=== PATIENT | female | born 1945 | race Caucasian/White ===

== ENCOUNTER 2017-09-19 19:03 | Inpatient (IN) | payer MEDICARE, OTHER ==
--- NOTE | 2017-09-19 19:17 | ED Physician Chart ---
ED Chief Complaint/HPI - Patient Information Date Seen:: 09/19/17 Time Seen:: 19:10 Chief Complaint:: increased agitation History of Present Illness:: Patient exhibiting increased agitation and confusion at her alf facility. Historian:: Patient, EMS Review:: Transfer documents Reviewed ED Review of Systems - Review of Systems General/Constitutional: No fever, No chills Skin: No skin lesions Head: No headache Eyes: No loss of vision ENT: No earache Neck: No neck pain Cardio Vascular: No chest pain, No palpitations Pulmonary: No SOB GI: No nausea, No vomiting, No diarrhea G/U: No dysuria Musculoskeletal: No bone or joint pain Endocrine: No polyuria, No polydipsia Psychiatric: Prior psych history, Other (probable dementia) Hematopoietic: No bruising Allergic/Immuno: No urticaria Neurological: No syncope, No focal symptoms ED Past Medical History - Past Medical History Past Medical History: Asthma/COPD, Arthritis, Other (leukopenia; osteoporosis) Family History: Other (unavailable) Social History: Care Facility Surgical History: other (unavailable) Psychiatricy History: Dementia (probably has dementia) Medication: Reviewed Family Medical History - Family Member Mother History Unknown: Yes Ethnicity: ED Physical Exam - Physical Examination General/Constitutional: Awake, Well-developed, well-nourished, Alert Other Gen/Cons comments:: The patient is alert and confused; she does not know the year. Head: Atraumatic Eyes: Lids, conjuctiva normal, PERRL Other Skin comments:: 1.5 out of 4 erythema lower legs ENMT: External ears, nose nl Neck: No nuchal rigidity Respiratory: Nl effort/Exclusion, Clear to Auscultation Cardio Vascular: RRR, No murmur, gallop, rubs GI: No tenderness/rebounding/guarding Extremities: Normal digits & nails Neuro/Psych: No focal deficits Misc: Normal back ED Labs/Radiology/EKG Results - Lab Results Comments:: Laboratory Results - last 24 hr 09/19/17 09/19/17 21:18 21:18 WBC 6.4 RBC 5.36 H Hgb 15.6 Hct 47.5 MCV 88.7 MCH 29.0 MCHC Differential 32.8 RDW 13.9 Plt Count 258 MPV 8.1 Neutrophils % 69.3 Lymphocytes % 20.9 Monocytes % 7.2 Eosinophils % 1.6 Basophils % 1.0 Sodium 137 Potassium 3.6 Chloride 104 Carbon Dioxide 26.1 Anion Gap 10.5 BUN 12 Creatinine 0.6 Est GFR ( Amer) TNP Est GFR (Non-Af Amer) TNP BUN/Creatinine Ratio 20.0 Glucose 149 H Calcium 9.2 Total Bilirubin 0.6 AST 15 ALT 9 Alkaline Phosphatase 57 Total Protein 6.8 Albumin 3.8 Globulin 3.0 Albumin/Globulin Ratio 1.3 Triglycerides 88 Cholesterol 155 LDL Cholesterol Direct 112 HDL Cholesterol 38 - EKG Interpretations Rate & Rhythm: normal sinus rhythm [place]: left axis deviation Comments:: Right bundle-branch block; PVC ED Septic Shock - . Is Septic Shock (SBP<90, OR Lactate>4 mmol\L) present?: No ED Reassessment (Disposition) - Reassessment Reassessment Condition:: Unchanged - Diagnosis Diagnosis:: Dementia with agitation - Patient Disposition Admitted to:: [facility] Admitting Medical Physician:: Lawson Mcpherson Admitting Psych Physician:: Carleen Aponte Condition at Disposition:: Stable, Unchanged
[2017-09-19 21:27] LABS: % EOSINOPHILS 1.6 % (0.0-5.0); % LYMPHOCYTES 20.9 % (20.0-50.0); % MONOCYTES 7.2 % (2.0-10.0); % NEUTROPHILS 69.3 % (40.0-80.0); BASOPHILE ABSOLUTE 0.1 Th/cumm (0-0.2); EOSINOPHILE ABSOLUTE 0.1 Th/cmm (0.1-0.4); HEMATOCRIT 47.5 % (41.0-60); HEMOGLOBIN 15.6 gm/dL (12-16); LYMPHOCYTE ABSOLUTE 1.3 Th/cmm (1.5-3.0); MEAN CELL VOLUME 88.7 fl (81-100); MEAN CORPUSCULAR HGB CONC 32.8 pg (28.0-36.0); MEAN PLATELET VOLUME 8.1 fl; MONOCYTE ABSOLUTE 0.5 Th/cmm (0.3-1.0); NEUTROPHILE ABSOLUTE 4.4 Th/cmm (1.8-8.0); PLATELET COUNT 258 Th/cmm (150-400); RED BLOOD COUNT 5.36 Mil/cmm (3.80-5.20); RED CELL DISTRIBUTION WIDTH 13.9 % (11.5-20.0); WHITE BLOOD COUNT 6.4 Th/cmm (4.8-10.8)
[2017-09-19 21:42] LABS: ALB/GLOB RATIO 1.3 (1.0-1.8); ALBUMIN 3.8 gm/dL (3.7-5.3); ALKALINE PHOSPHATASE 57 U/L (34-104); ANION GAP 10.5 (7.0-16.0); BILIRUBIN,TOTAL 0.6 mg/dL (0.3-1.0); BUN - UREA NITROGEN 12 mg/dL (7-25); CALCIUM SERUM 9.2 mg/dL (8.6-10.3); CARBON DIOXIDE 26.1 mEq/L (21.0-31.0); CHLORIDE 104 mEq/L (98-107); CHOLESTEROL 155 mg/dL (<200); CREATININE - SERUM 0.6 mg/dL (0.6-1.2); GLUCOSE 149 mg/dL (70-105); HDL -HIGH DENSITY LIPOPROTEIN 38 mg/dL (23-92); POTASSIUM SERUM 3.6 mEq/L (3.5-5.1); SGOT 15 U/L (13-39); SGPT/ALT 9 U/L (7-52); SODIUM SERUM 137 mEq/L (136-145); TOTAL PROTEIN,SERUM 6.8 gm/dL (6.0-8.3); TRIGLYCERIDES 88 mg/dL (<150)
[2017-09-19 23:46] VITALS: BP 138/92
[2017-09-20] MEDS ORDERED: Fleet Enema 135 mL RC PRN (00:38)
[2017-09-20] MEDS ORDERED: Magnesium Hydroxide (MOM) 30 mL UDC PO PRN (00:38)
[2017-09-20] MEDS: Ipratropium Neb 0.5 mg/2.5 mL UD HHN SCH ×3 (06:35→22:41)
[2017-09-20] MEDS: INSULIN ASPART SLIDING SCALE 100 UNITS/ML UNIT SUBQ SCH ×4 (06:36→21:45)
[2017-09-20] MEDS ORDERED: Non-Formulary Item 1 EA (Apixaban [Eliquis] 5 MG) PO SCH (09:00)
[2017-09-20] MEDS: Pantoprazole 40 mg EC Tab PO SCH ×2 (09:50→10:00)
[2017-09-20] MEDS: Albuterol Nebulizer 2.5mg/3mL HHN SCH ×2 (14:36→22:41)
--- NOTE | 2017-09-20 19:42 | Consultation ---
DATE OF CONSULTATION: 09/19/2017 INTERNAL MEDICINE CONSULT HISTORY OF PRESENT ILLNESS: The patient is a 72-year-old female with past medical history significant for diabetes mellitus, diabetic angiopathy, neuropathy, hypertension, COPD, coronary artery disease, peptic ulcer disease, gastritis, arthritis, osteoporosis. SOCIAL HISTORY: Prior history of smoking. No history of drug or alcohol abuse. FAMILY HISTORY: Not available. OBSTETRIC HISTORY: P2 plus 0. Menses, postmenopausal. REVIEW OF SYSTEMS: The patient has occasional cough, occasional wheezing, no nausea, no vomiting, extensive arthritic pain. PHYSICAL EXAMINATION: GENERAL: Elderly female in no obvious respiratory distress. VITAL SIGNS: Include a blood pressure 140/80, heart rate 80, respiration rate of 18. SKIN: Show no cellulitis. HEENT: Normal conjunctivae. NECK: Supple. LUNGS: Show bilateral rhonchi as well as crepitation, no bronchial breathing. HEART: First present. ABDOMEN: Soft, minimal epigastric tenderness. Bowel sounds are good. EXTREMITIES: Show arthritis. NEUROLOGIC: The patient has no focal motor deficit. LABORATORY DATA: Include white count 6.4, hemoglobin 15.6, hematocrit 47.5, platelet count 258. Sodium 137, potassium 3.6, chloride 104, bicarb 26.1, BUN 12, creatinine 0.6, glucose of 136. RPR is negative. MEDICAL DIAGNOSES: Include diabetes mellitus, diabetic angiopathy, neuropathy, chronic obstructive pulmonary disease, hypertension, coronary artery disease, peptic ulcer, arthritis, osteoporosis. CURRENT MEDICINES: Include Namenda, Glucophage twice a day 500 mg, Protonix 40 daily, milk of magnesia. The patient had bronchodilator treatment, Levemir 10 units daily, sliding scale. Thank you Dr. Aponte for letting me see your patient. JOB# [id number]
[2017-09-20] MEDS: Insulin Detemir 100 units/mL 10mL Vial SUBQ SCH (21:45)
--- NOTE | 2017-09-21 02:08 | Psychosocial Evaluation ---
DATE OF SERVICE: 09/19/2017 IDENTIFYING DATA: The patient is a 72-year-old woman, resident of [facility]. Information obtained by directly interviewing the patient as well as reviewing the admission papers and he is reliable. JUSTIFICATION OF HOSPITALIZATION: The patient is admitted here on a voluntary basis in view of her acute agitation. CHIEF COMPLAINT: "I need to get out of here." HISTORY OF PRESENT ILLNESS: This is the first psychiatric hospitalization to [facility] for this patient who is reported to have been getting easily agitated, pacing most of the time and talking to self, not making any sense. The patient has been getting upset when I am trying to talk to her and then stating that she needs to get out of here and she has been waiting at that doors most of the time. The patient could not be redirectable. The patient has been having difficult time even at the facility and hence the patient has been referred over here for stabilization. PAST PSYCHIATRIC HISTORY: Details are not known. MEDICAL HISTORY AND PHYSICAL EXAMINATION: Requested and done by Dr. Mcpherson. SUBSTANCE ABUSE HISTORY: None. PHYSICAL OR SEXUAL ABUSE HISTORY: None. LEGAL PROBLEMS: None at this time. STRENGTH AND ASSETS: The patient is motivated. MENTAL STATUS EXAMINATION: The patient is a 72-year-old woman, moderately obese, superficially cooperative and pacing most of the time. Insight and judgment at this time are noted to be still impaired. Impulse control seems to be poor. Coping skills are noted to be poor. The patient has no insight into her illness. The patient's short and long-term memory both are noted to be impaired. The patient has been talking to self and not making much sense. DIAGNOSTIC IMPRESSION: AXIS I: Psychotic disorder, not otherwise specified. 1B. Dementia and behavioral change, secondary trait. IMMEDIATE TREATMENT PLAN: The patient is going to be observed on inpatient unit, provided with supportive psychotherapy. The patient is going to be closely monitored. Once stabilized, the patient is going to be discharged to [facility] to be followed up on an outpatient basis. [facility]# [id number]
[2017-09-21] MEDS: INSULIN ASPART SLIDING SCALE 100 UNITS/ML UNIT SUBQ SCH ×4 (06:47→21:15)
[2017-09-21] MEDS: Albuterol Nebulizer 2.5mg/3mL HHN SCH ×3 (08:34→22:58)
[2017-09-21] MEDS: Ipratropium Neb 0.5 mg/2.5 mL UD HHN SCH ×3 (08:35→22:59)
[2017-09-21] MEDS: Pantoprazole 40 mg EC Tab PO SCH (09:28)
--- NOTE | 2017-09-21 13:33 | Progress Notes ---
DATE: 09/21/2017 SUBJECTIVE: Staff was spoken to. The patient is interviewed. Mood is noted to be irritable. Affect is constricted. Insight and judgment are be still impaired. Impulse control seems to be poor. The patient has been isolative and withdrawn. No side effects to the medications are noted. The patient has been pacing most of the time on the unit. In view of her psychosis, the patient has been started on 12.5 mg of the Seroquel last night and the patient is being closely monitored. ASSESSMENT: The patient is still psychotic. PLAN: To continue the patient with the supportive therapy, encouraged the patient to verbalize the concerns rather than to act out. JOB# [id number]
[2017-09-21] MEDS: Insulin Detemir 100 units/mL 10mL Vial SUBQ SCH (21:15)
[2017-09-22] MEDS: INSULIN ASPART SLIDING SCALE 100 UNITS/ML UNIT SUBQ SCH ×4 (07:00→21:36)
[2017-09-22] MEDS: Albuterol Nebulizer 2.5mg/3mL HHN SCH ×3 (07:31→23:48)
[2017-09-22] MEDS: Ipratropium Neb 0.5 mg/2.5 mL UD HHN SCH ×2 (07:31→14:00)
[2017-09-22] MEDS: Pantoprazole 40 mg EC Tab PO SCH (09:58)
[2017-09-22] MEDS ORDERED: Haloperidol Lactate 5 mg/mL 1mL Vial IM ONE (11:53)
--- NOTE | 2017-09-22 19:23 | Progress Notes ---
DATE: 09/22/2017 PSYCHIATRIC PROGRESS NOTE SUBJECTIVE: Staff was spoken to. The patient is interviewed. Mood is noted to be irritable. Affect is constricted. Insight and judgment at this time are very much impaired. Impulse control is poor. Coping skills are also noted to be poor. The patient is reluctant to comply with the medication. The patient has been very agitated and very paranoid. The patient is responding to internal stimuli. Since the patient has been getting agitated and could not be redirected, the patient is going to be given a dose of Haldol to decrease the agitation and the patient is going to be followed up. JOB# [id number]
[2017-09-22] MEDS: Insulin Detemir 100 units/mL 10mL Vial SUBQ SCH (21:34)
[2017-09-23] MEDS: INSULIN ASPART SLIDING SCALE 100 UNITS/ML UNIT SUBQ SCH ×4 (07:19→20:49)
[2017-09-23] MEDS: Ipratropium Neb 0.5 mg/2.5 mL UD HHN SCH ×3 (08:37→23:11)
[2017-09-23] MEDS: Albuterol Nebulizer 2.5mg/3mL HHN SCH ×3 (08:37→23:11)
[2017-09-23] MEDS: Pantoprazole 40 mg EC Tab PO SCH ×2 (08:41→09:00)
[2017-09-23] MEDS: Insulin Detemir 100 units/mL 10mL Vial SUBQ SCH (21:42)
--- NOTE | 2017-09-23 22:03 | Progress Notes ---
DATE: 09/23/2017 PSYCHIATRIC PROGRESS NOTE SUBJECTIVE: Staff was spoken to. The patient is interviewed. Mood is noted to be irritable. Affect is constricted. Insight and judgment to be still impaired. Impulse control is noted to be limited. Coping skills, the patient is actively responding to internal stimuli and pacing most of the time on the unit. The patient is getting easily irritable. The patient has been started on the Seroquel, which is increased to 25 mg and the patient is going to be closely monitored for any falls and the patient is going to be continued on the Seroquel. JOB# [id number]
[2017-09-24] MEDS: Ipratropium Neb 0.5 mg/2.5 mL UD HHN SCH ×2 (08:32→15:49)
[2017-09-24] MEDS: Albuterol Nebulizer 2.5mg/3mL HHN SCH ×2 (08:33→15:49)
[2017-09-24] MEDS: INSULIN ASPART SLIDING SCALE 100 UNITS/ML UNIT SUBQ SCH ×4 (14:08→21:26)
[2017-09-24] MEDS: Pantoprazole 40 mg EC Tab PO SCH (14:09)
--- NOTE | 2017-09-24 16:02 | Progress Notes ---
DATE: 09/24/2017 SUBJECTIVE: Staff was spoken to. The patient is interviewed. Mood is noted to be irritable. Affect is constricted. Insight and judgment are noted to be still impaired. Impulse control seems to be limited. The patient is reluctant to comply with the medication. The patient is pacing most of the time on the unit. ASSESSMENT: The patient is still grossly psychotic and impulsive. PLAN: Continue the patient with the supportive therapy. Encouraged the patient to verbalize the concerns rather than to act out. JOB# [id number]
[2017-09-24] MEDS: Insulin Detemir 100 units/mL 10mL Vial SUBQ SCH (21:26)
[2017-09-25] MEDS: Albuterol Nebulizer 2.5mg/3mL HHN SCH ×3 (07:33→23:16)
[2017-09-25] MEDS: Ipratropium Neb 0.5 mg/2.5 mL UD HHN SCH ×3 (07:33→23:16)
[2017-09-25] MEDS: Pantoprazole 40 mg EC Tab PO SCH (11:35)
[2017-09-25] MEDS: INSULIN ASPART SLIDING SCALE 100 UNITS/ML UNIT SUBQ SCH ×4 (11:45→21:10)
--- NOTE | 2017-09-25 14:12 | Progress Notes ---
DATE: 09/25/2017 SUBJECTIVE: Staff was spoken to. The patient is interviewed. Mood is noted to be dysphoric. The patient is talking to self, not making much sense. Coping skills are noted to be very poor. Insight and judgment are also noted to be very poor. No side effects to the medications are noted. ASSESSMENT: The patient is still grossly psychotic. PLAN: To continue the patient with the supportive therapy and current medications. I encouraged the patient to verbalize the concerns rather than to act out. JOB# [id number]
[2017-09-25] MEDS: Insulin Detemir 100 units/mL 10mL Vial SUBQ SCH (21:11)
[2017-09-26] MEDS: INSULIN ASPART SLIDING SCALE 100 UNITS/ML UNIT SUBQ SCH ×4 (06:49→21:11)
[2017-09-26] MEDS: Ipratropium Neb 0.5 mg/2.5 mL UD HHN SCH ×3 (07:34→23:00)
[2017-09-26] MEDS: Albuterol Nebulizer 2.5mg/3mL HHN SCH ×3 (07:35→23:00)
[2017-09-26] MEDS: Pantoprazole 40 mg EC Tab PO SCH (10:01)
--- NOTE | 2017-09-26 10:30 | Progress Notes ---
DATE: 09/26/2017 PSYCHIATRIC PROGRESS NOTE SUBJECTIVE: Staff was spoken to. The patient is interviewed. Mood is noted to be irritable. Affect is constricted. The patient is reluctant to take any of the medications. The patient has been screaming and yelling. The patient has no insight into her illness. The patient is constantly testing the limits. The patient even refusing to have the blood drawn. ASSESSMENT: The patient is still grossly psychotic. PLAN: To continue the patient with the supportive therapy, I encouraged the patient to verbalize the concerns, if the patient refuses possibly patient is going to be given a shot of Haldol on a stat basis and the patient is going to be followed up. [facility]# [id number]
[2017-09-26] MEDS: Insulin Detemir 100 units/mL 10mL Vial SUBQ SCH (21:12)
[2017-09-27] MEDS: INSULIN ASPART SLIDING SCALE 100 UNITS/ML UNIT SUBQ SCH ×3 (06:54→20:26)
[2017-09-27] MEDS: Ipratropium Neb 0.5 mg/2.5 mL UD HHN SCH ×3 (08:18→23:17)
[2017-09-27] MEDS: Albuterol Nebulizer 2.5mg/3mL HHN SCH ×3 (08:18→23:17)
[2017-09-27] MEDS: Pantoprazole 40 mg EC Tab PO SCH (10:14)
[2017-09-27] MEDS: Insulin Detemir 100 units/mL 10mL Vial SUBQ SCH (21:05)
--- NOTE | 2017-09-27 21:23 | Progress Notes ---
DATE: 09/27/2017 SUBJECTIVE: Staff was spoken to. The patient is interviewed. Mood is noted to be irritable. Affect is constricted. Insight and judgment are very much impaired. Impulse control is noted to be poor. The patient is reluctant to comply with the medication. The patient has no insight. The patient is getting easily irritable and angry. The patient is extremely paranoid at this time. ASSESSMENT: The patient is impulsive. PLAN: To increase the dose on the Seroquel to 25 mg twice a day and I encouraged the patient to verbalize the concerns rather than to act out. JOB# [id number]
[2017-09-28] MEDS: INSULIN ASPART SLIDING SCALE 100 UNITS/ML UNIT SUBQ SCH ×4 (06:50→21:00)
[2017-09-28] MEDS: Ipratropium Neb 0.5 mg/2.5 mL UD HHN SCH ×3 (07:20→23:15)
[2017-09-28] MEDS: Albuterol Nebulizer 2.5mg/3mL HHN SCH ×3 (07:20→23:15)
[2017-09-28] MEDS ORDERED: Haloperidol Lactate 5 mg/mL 1mL Vial ONE (08:39)
[2017-09-28] MEDS ORDERED: Haloperidol Lactate 5 mg/mL 1mL Vial IM ONE (08:54)
[2017-09-28] MEDS: Pantoprazole 40 mg EC Tab PO SCH (09:10)
--- NOTE | 2017-09-28 15:41 | Progress Notes ---
DATE: 09/28/2017 SUBJECTIVE: Staff was spoken to. The patient is interviewed. Mood is noted to be irritable. Affect is constricted. Coping skills are noted to be poor. The patient has been reluctant to take the medication and has been getting out of control and the patient has to be given a dose of Haldol. The patient from there has been very closely monitored. The patient seems to be doing a little bit with the medication. ASSESSMENT: The patient is still psychotic. PLAN: To continue the patient with supportive therapy and follow. JOB# [id number]
[2017-09-28] MEDS: Insulin Detemir 100 units/mL 10mL Vial SUBQ SCH (21:00)
[2017-09-29] MEDS: INSULIN ASPART SLIDING SCALE 100 UNITS/ML UNIT SUBQ SCH ×4 (06:49→21:16)
[2017-09-29] MEDS: Ipratropium Neb 0.5 mg/2.5 mL UD HHN SCH ×2 (08:00→15:41)
[2017-09-29] MEDS: Albuterol Nebulizer 2.5mg/3mL HHN SCH ×3 (08:01→23:00)
[2017-09-29] MEDS: Pantoprazole 40 mg EC Tab PO SCH (17:47)
[2017-09-29] MEDS: Insulin Detemir 100 units/mL 10mL Vial SUBQ SCH (20:12)
--- NOTE | 2017-09-29 22:56 | Progress Notes ---
DATE: 09/29/2017 SUBJECTIVE: Staff was spoken to. The patient is interviewed. Mood is noted to be irritable. Affect is constricted. Coping skills are noted to be very poor. The patient has been having difficult time to cope with the stress. The patient is pacing most of the time on the unit. The patient has been getting easily irritable and angry and it has been becoming difficult to redirect the patient. ASSESSMENT: The patient is grossly psychotic. PLAN: To increase the dose on the Seroquel to 50 mg twice a day and follow the patient with the supportive therapy. Please note that the patient is not ready to be discharged to a lower level of care yet. JOB# [id number]
[2017-09-30] MEDS: INSULIN ASPART SLIDING SCALE 100 UNITS/ML UNIT SUBQ SCH ×4 (06:39→21:30)
[2017-09-30] MEDS: Albuterol Nebulizer 2.5mg/3mL HHN SCH ×3 (07:07→23:24)
[2017-09-30] MEDS: Ipratropium Neb 0.5 mg/2.5 mL UD HHN SCH ×3 (07:07→23:24)
[2017-09-30] MEDS: Pantoprazole 40 mg EC Tab PO SCH (09:22)
--- NOTE | 2017-09-30 13:58 | Progress Notes ---
DATE: 09/30/2017 SUBJECTIVE: Staff was spoken to. The patient is interviewed. The patient is very disruptive. The patient has been pacing most of the time. Insight and judgment at this time are noted to be still impaired. Impulse control seems to be limited. Coping skills are noted to be limited. The patient has been having difficult time to cope with the stress. ASSESSMENT: The patient is still psychotic and impulsive. PLAN: To continue the patient with supportive therapy and followup. [facility]# [id number]
[2017-09-30] MEDS: Insulin Detemir 100 units/mL 10mL Vial SUBQ SCH (21:31)
[2017-10-01] MEDS: INSULIN ASPART SLIDING SCALE 100 UNITS/ML UNIT SUBQ SCH ×4 (06:30→20:17)
[2017-10-01] MEDS: Albuterol Nebulizer 2.5mg/3mL HHN SCH ×3 (07:29→22:47)
[2017-10-01] MEDS: Ipratropium Neb 0.5 mg/2.5 mL UD HHN SCH ×3 (07:30→22:48)
[2017-10-01] MEDS: Pantoprazole 40 mg EC Tab PO SCH (09:37)
--- NOTE | 2017-10-01 13:27 | Progress Notes ---
DATE: 10/01/2017 SUBJECTIVE: Staff was spoken to. The patient is interviewed. Mood is irritable. Affect is constricted. Coping skills are noted to be extremely poor. Sleep and appetite also noted to be poor. The patient has been still testing the limits. No side effects to medications are noted. The patient is currently on the Seroquel 50 mg twice a day and has been able to tolerate the medication. ASSESSMENT: The patient is still impulsive. PLAN: To continue the patient with the supportive therapy and followup. JOB# [id number]
[2017-10-01] MEDS: Insulin Detemir 100 units/mL 10mL Vial SUBQ SCH (20:17)
[2017-10-02] MEDS: Albuterol Nebulizer 2.5mg/3mL HHN SCH ×3 (08:36→16:34)
[2017-10-02] MEDS: Ipratropium Neb 0.5 mg/2.5 mL UD HHN SCH ×3 (08:37→16:34)
[2017-10-02] MEDS: Pantoprazole 40 mg EC Tab PO SCH (09:25)
--- NOTE | 2017-10-02 09:48 | Diagnostic Imaging Report ---
CHEST X-RAY: AP view INDICATION: CVA COMPARISON: None FINDINGS: Chronic lung changes are seen with left basal increased density. No focal lesions. Mild cardiomegaly is noted with atherosclerosis. Degenerative changes of spine are noted. Fracture deformities of the bilateral proximal humeral regions are noted. IMPRESSION: Chronic lung changes with increased left basal lung markings probably chronic, however, faint infiltrate cannot be excluded please cortical Mild cardiomegaly with atherosclerosis. Fracture deformities of the bilateral proximal humeral regions. Please correlate with clinical findings and old exams.
[2017-10-02 10:19] LABS: % EOSINOPHILS 0.6 % (0.0-5.0); % LYMPHOCYTES 7.9 % (20.0-50.0); % MONOCYTES 10.4 % (2.0-10.0); % NEUTROPHILS 80.1 % (40.0-80.0); BASOPHILE ABSOLUTE 0.1 Th/cumm (0-0.2); EOSINOPHILE ABSOLUTE 0.1 Th/cmm (0.1-0.4); HEMATOCRIT 47.1 % (41.0-60); HEMOGLOBIN 15.3 gm/dL (12-16); LYMPHOCYTE ABSOLUTE 0.7 Th/cmm (1.5-3.0); MEAN CELL VOLUME 88.4 fl (81-100); MEAN CORPUSCULAR HEMOGLOBIN 28.6 pg (27.0-31.0); MEAN CORPUSCULAR HGB CONC 32.4 pg (28.0-36.0); MEAN PLATELET VOLUME 8.2 fl; MONOCYTE ABSOLUTE 0.9 Th/cmm (0.3-1.0); NEUTROPHILE ABSOLUTE 6.8 Th/cmm (1.8-8.0); PLATELET COUNT 265 Th/cmm (150-400); RED BLOOD COUNT 5.33 Mil/cmm (3.80-5.20); RED CELL DISTRIBUTION WIDTH 13.8 % (11.5-20.0)
[2017-10-02 10:21] LABS: WHITE BLOOD COUNT 8.6 Th/cmm (4.8-10.8)
[2017-10-02 10:41] LABS: ALB/GLOB RATIO 1.3 (1.0-1.8); ALBUMIN 3.7 gm/dL (3.7-5.3); ALKALINE PHOSPHATASE 60 U/L (34-104); BILIRUBIN,TOTAL 0.5 mg/dL (0.3-1.0); BUN - UREA NITROGEN 11 mg/dL (7-25); CALCIUM SERUM 8.6 mg/dL (8.6-10.3); CARBON DIOXIDE 26.9 mEq/L (21.0-31.0); CREATININE - SERUM 0.5 mg/dL (0.6-1.2); GLUCOSE 146 mg/dL (70-105); SGOT 11 U/L (13-39); SGPT/ALT 7 U/L (7-52); TOTAL PROTEIN,SERUM 6.6 gm/dL (6.0-8.3)
[2017-10-02 10:52] LABS: ANION GAP 10.7 (7.0-16.0); CHLORIDE 101 mEq/L (98-107); POTASSIUM SERUM 3.6 mEq/L (3.5-5.1); SODIUM SERUM 135 mEq/L (136-145)
[2017-10-02] MEDS ORDERED: LEVOFLOXACIN 250 MG/50 ML IV ONE (10:56)
[2017-10-02] MEDS: INSULIN ASPART SLIDING SCALE 100 UNITS/ML UNIT SUBQ SCH ×2 (16:04→16:06)
[2017-10-02] MEDS: Acetaminophen 500 MG TAB PO SCH (16:48)
== END 2017-10-02 20:40 | DRG 885 ==
LOC: ER 19:03 → UNDOADMIN 22:18 → GERO 22:18
PROVIDERS: ADMIT Psychiatry & Neurology Psychiatry; ATTEND Psychiatry & Neurology Psychiatry
DX: F29 Unspecified psychosis not due to a substance or known physiological condition (principal); E11.40 Type 2 diabetes mellitus with diabetic neuropathy, unspecified; E11.51 Type 2 diabetes mellitus with diabetic peripheral angiopathy without gangrene; F03.91 Unspecified dementia, unspecified severity, with behavioral disturbance; J44.9 Chronic obstructive pulmonary disease, unspecified; I10 Essential (primary) hypertension; I25.10 Atherosclerotic heart disease of native coronary artery without angina pectoris; K27.9 Peptic ulcer, site unspecified, unspecified as acute or chronic, without hemorrhage or perforation; M19.90 Unspecified osteoarthritis, unspecified site; M81.0 Age-related osteoporosis without current pathological fracture; F17.210 Nicotine dependence, cigarettes, uncomplicated; Z88.1 Allergy status to other antibiotic agents; Z88.0 Allergy status to penicillin
CPT/HCPCS: 36415-UA; 71010-TC; 80053-TC; 80061-TC; 82948-90; 84443-TC; 85007-TC; 85025-TC; 85027-TC; 86592-TC; 90779; 93005; 94640; 94760; J1200; J1630; J1815; J7613; Z7610

== ENCOUNTER 2017-10-02 20:43 | Inpatient (IN) | payer MEDICARE, OTHER ==
[2017-10-02] MEDS ORDERED: Levofloxacin 250mg/50mL 250 MG/50 ML BAG IV SCH (22:00)
[2017-10-02 22:32] VITALS: BP 132/66
--- NOTE | 2017-10-03 01:54 | Progress Notes ---
DATE: 10/02/2017 SUBJECTIVE: Staff was spoken to. The patient is interviewed. Mood is noted to be anxious and depressed. Affect is constricted. The patient is reporting that she does not feel good and she has been not able to eat anything and the patient is reported to have been having abnormal chest x-ray and possibly, the patient is in need of counseling possibly to the medical care. The patient is also reported to have been refusing to eat and the patient is being closely monitored. The patient's white cell count is noted to be okay except for the neutrophils are elevated at 80.1. The patient is being closely monitored. I encouraged to comply with the treatment as the patient is only on 50 mg twice a day of the Seroquel, but the patient has been reluctant to comply with the medication at this time. ASSESSMENT: The patient is still psychotic and possibly, the patient is going to be transferred to the medical floor for possible IV fluids. JOB# [id number]
[2017-10-03] MEDS ORDERED: Albuterol Nebulizer 2.5mg/3mL HHN PRN (08:30)
[2017-10-03] MEDS ORDERED: Magnesium Hydroxide (MOM) 30 mL UDC PO PRN (11:56)
[2017-10-03] MEDS ORDERED: Fleet Enema 135 mL RC PRN (11:56)
[2017-10-03] MEDS: cefTRIAXone 1 GM in Sodium Chloride 0.9% 50 ML IV SCH (14:25)
[2017-10-03] MEDS: methylPREDNISolone SS 40 mg Vial IVP SCH ×2 (14:25→19:56)
--- NOTE | 2017-10-03 14:38 | History & Physical ---
ADMIT DATE: 10/03/2017 HISTORY OF PRESENT ILLNESS: The patient is a 72-year-old female initially admitted to [facility]. The patient was found to be in respiratory distress. I saw patient at 9 at [facility]. The patient was wheezing. I talked to the nurse in [facility], her name is Anya. I gave admitting orders of Rocephin, Solu-Medrol and bronchodilator treatment and the patient needs to be transferred to the medical floor. I was assured that patient will be transferred to medical floor with the admitting orders. I talked to Anya twice. I got a call 11 hours later, 8 at night. The patient was not transferred to the medical floor as hospital was prioritizing the ER admission, not the inpatient hospitalization, so the patient was not transferred to the medical floor and also patient denied receive any medicines, no antibiotics, no bronchodilator treatment, no oxygen supplementation. I got another call at [address] from the [facility] floor nurse and she said patient refusing medicines and did not even give her basic psych medicines. No antibiotics, no medicines again. Again I got a call at the medical floor at 6 in the morning. Again, the nurse did not give any medicines to the patient, no diabetes, no hypertension, no bronchodilator treatment, oxygen supplementation, nothing and I talked to the PUNCH PRESS SETTER in the morning and I was promised the patient will receive the medicines. Again I got a call 12, the patient did not receive any medicines. I have talked to the PUNCH PRESS SETTER again as well as the security system administrator regarding the patient not getting medicines. I am here at 1 and patient still not have received the medicines. OBJECTIVE: VITAL SIGNS: Meanwhile, the patient's vital signs are stable. LUNGS: Show bilateral rhonchi and crepitation. No bronchial wheezing. HEART: First and second present. ABDOMEN: Soft, minimal epigastric tenderness. EXTREMITIES: Show arthritis. NEUROLOGIC: The patient has advanced psychosis. ADMITTING DIAGNOSES: Include COPD with acute respiratory distress with respiratory infection. LABORATORY DATA: Still pending. No CBC. No Chem-7. No chest x-ray has been done. Other ___ include diabetes, hypertension, peptic ulcer, arthritis and advanced psychosis. The patient also has a history of atrial fibrillation. ID and psych consultation requested for. Meanwhile, the patient should be receiving bronchodilator treatment, albuterol. The patient should be receiving IV Rocephin, Aricept, sliding scale, and Levemir 10 units daily. The patient is supposed to have labetalol 200 mg 3 times a day, lorazepam, milk of magnesia, Namenda, Solu-Medrol, Protonix, and Xarelto. JOB# [id number]
--- NOTE | 2017-10-03 15:11 | Diagnostic Imaging Report ---
Portable chest x-ray HISTORY: Shortness of breath Compared with prior exam of October 02, 2017, the heart remains enlarged. There is a poor inspiration. There does appear to be degree of pulmonary vascular redistribution suggesting an element of cardiac consultation. Accentuation of interstitial markings in the left lung base. A small effusion cannot be excluded. Deformity involving the right second, third, and fourth ribs noted. Findings consistent with fractures probably old. Severe deformity about the right shoulder with apparent resection of the proximal right humeral shaft and head. IMPRESSION: 1. Cardiomegaly. A degree of congestive heart failure cannot be excluded. Accentuation of interstitial markings within the left lower lobe. Question small left pleural effusion. 2. Chronic deformity about the right shoulder as noted above. 3. Right rib deformities. Findings are also most likely chronic. If necessary, dedicated rib radiographs of provide additional detail.
[2017-10-03] MEDS: Ipratropium Neb 0.5 mg/2.5 mL UD HHN SCH ×2 (16:29→22:58)
[2017-10-03] MEDS: Albuterol Nebulizer 2.5mg/3mL HHN SCH ×2 (16:29→22:58)
[2017-10-03] MEDS: Acetaminophen 500 MG TAB PO SCH ×2 (16:58→19:56)
[2017-10-03] MEDS ORDERED: Non-Formulary Item 1 EA (Apixaban [Eliquis] 5 MG) PO SCH (17:00)
[2017-10-03] MEDS: INSULIN ASPART SLIDING SCALE 100 UNITS/ML UNIT SUBQ SCH ×2 (18:58→21:04)
[2017-10-03] MEDS: Insulin Detemir 100 units/mL 10mL Vial SUBQ SCH (21:05)
--- NOTE | 2017-10-03 23:11 | Consultation ---
DATE OF CONSULTATION: 10/03/2017 PRIMARY CARE PHYSICIAN: Dr. Mcpherson. HISTORY OF PRESENT ILLNESS: This 72-year-old female was brought to the medical side because of shortness of breath. The patient was found to have bronchitis and was seen by Dr. Aponte. The patient started on antibiotics. However, she is refusing IV antibiotic and p.o. Levaquin was started. PAST MEDICAL HISTORY: COPD. FAMILY HISTORY: Negative. SOCIAL HISTORY: Nonsmoker. REVIEW OF SYSTEMS: A 14-point review of system negative except above. PHYSICAL EXAMINATION: GENERAL: Elderly female, well nourished. VITAL SIGNS: Temperature is 97.9, maximum temperature 99.6. HEENT: Mild pallor, no icterus or plaque. NECK: Supple. LUNGS: Breath sounds bilateral vesicular. Bilateral air entry decreased on the lungs. ABDOMEN: Soft. Bowel sounds present. LYMPHATICS: No thyroid. No cervical lymph nodes. EXTREMITIES: No pedal edema. NEUROLOGIC: No focal deficits. Reflex equal both sides, plantar flexors. DIAGNOSTIC DATA: Chest x-ray ordered. DIAGNOSES: Bronchitis and chronic obstructive pulmonary disease. PLAN: The patient started on bronchodilators, steroid, and p.o. Levaquin. As the patient refusing IV antibiotics, supportive care, rest of the care as ordered in CPOE. Urine culture and sputum culture also ordered. Thank you, Dr. Mcpherson, for this consultation. JOB# [id number]
[2017-10-04] MEDS: methylPREDNISolone SS 40 mg Vial IVP SCH ×2 (02:57→03:17)
[2017-10-04] MEDS: cefTRIAXone 1 GM in Sodium Chloride 0.9% 50 ML IV SCH (02:57)
[2017-10-04] MEDS: Acetaminophen 500 MG TAB PO SCH ×4 (03:16→17:11)
[2017-10-04 03:24] LABS: INF A SCREEN POS FOR INF A; INF B SCREEN NEG FOR INF B
[2017-10-04] MEDS: INSULIN ASPART SLIDING SCALE 100 UNITS/ML UNIT SUBQ SCH ×4 (07:09→20:18)
[2017-10-04] MEDS: Pantoprazole 40 mg EC Tab PO SCH (08:08)
[2017-10-04] MEDS: Albuterol Nebulizer 2.5mg/3mL HHN SCH ×3 (08:15→22:43)
[2017-10-04] MEDS: Ipratropium Neb 0.5 mg/2.5 mL UD HHN SCH ×3 (08:15→22:43)
[2017-10-04] MEDS ORDERED: Probiotic Screen MC PRN (16:01)
[2017-10-04] MEDS: Insulin Detemir 100 units/mL 10mL Vial SUBQ SCH (20:19)
--- NOTE | 2017-10-04 22:28 | Progress Notes ---
DATE: 10/04/2017 Staff was spoken to. The patient is interviewed. Mood is noted to be irritable. Affect is constricted. The patient is sleepy and withdrawn. Coping skills are noted to be still poor. Continues to be very paranoid. The patient is currently on 50 mg of the Seroquel twice a day and the patient is reporting that the medication is making her to be too sleepy and hence the Seroquel is going to be changed to nighttime dosing only and the patient is going to be closely monitored. ASSESSMENT: The patient is still paranoid. PLAN: To continue the patient with the supportive therapy, encouraged the patient to verbalize the concerns rather than to act out. JOB# [id number]
[2017-10-05] MEDS: Acetaminophen 500 MG TAB PO SCH ×5 (00:13→17:15)
[2017-10-05] MEDS: cefTRIAXone 1 GM in Sodium Chloride 0.9% 50 ML IV SCH (02:05)
[2017-10-05] MEDS: INSULIN ASPART SLIDING SCALE 100 UNITS/ML UNIT SUBQ SCH ×4 (06:49→20:39)
[2017-10-05] MEDS: Albuterol Nebulizer 2.5mg/3mL HHN SCH ×3 (07:32→22:48)
[2017-10-05] MEDS: Ipratropium Neb 0.5 mg/2.5 mL UD HHN SCH ×3 (07:32→22:48)
[2017-10-05] MEDS: Pantoprazole 40 mg EC Tab PO SCH ×2 (09:33→09:41)
[2017-10-05] MEDS: Insulin Detemir 100 units/mL 10mL Vial SUBQ SCH (20:39)
[2017-10-06] MEDS: Acetaminophen 500 MG TAB PO SCH ×4 (00:03→17:21)
[2017-10-06] MEDS: cefTRIAXone 1 GM in Sodium Chloride 0.9% 50 ML IV SCH (02:33)
[2017-10-06] MEDS: INSULIN ASPART SLIDING SCALE 100 UNITS/ML UNIT SUBQ SCH ×4 (06:41→22:21)
[2017-10-06] MEDS: Albuterol Nebulizer 2.5mg/3mL HHN SCH ×2 (07:13→23:02)
[2017-10-06] MEDS: Ipratropium Neb 0.5 mg/2.5 mL UD HHN SCH ×2 (07:13→23:02)
[2017-10-06] MEDS: Pantoprazole 40 mg EC Tab PO SCH (09:00)
[2017-10-06] MEDS ORDERED: Haloperidol Lactate 5 mg/mL 1mL Vial IVP PRN ×2 (14:22)
[2017-10-06] MEDS: Insulin Detemir 100 units/mL 10mL Vial SUBQ SCH (22:19)
[2017-10-07] MEDS: Acetaminophen 500 MG TAB PO SCH ×5 (00:30→23:15)
[2017-10-07] MEDS: cefTRIAXone 1 GM in Sodium Chloride 0.9% 50 ML IV SCH (02:36)
[2017-10-07] MEDS ORDERED: Haloperidol Lactate 5 mg/mL 1mL Vial IM PRN (04:16)
[2017-10-07] MEDS: INSULIN ASPART SLIDING SCALE 100 UNITS/ML UNIT SUBQ SCH ×4 (06:58→22:11)
[2017-10-07] MEDS ORDERED: Albuterol Nebulizer 2.5mg/3mL HHN ONE (07:01)
[2017-10-07] MEDS ORDERED: Ipratropium Neb 0.5 mg/2.5 mL UD HHN ONE (07:01)
[2017-10-07] MEDS: Ipratropium Neb 0.5 mg/2.5 mL UD HHN SCH ×3 (07:34→23:13)
[2017-10-07] MEDS: Albuterol Nebulizer 2.5mg/3mL HHN SCH ×3 (07:35→23:13)
[2017-10-07] MEDS: Pantoprazole 40 mg EC Tab PO SCH (10:55)
[2017-10-07] MEDS: Insulin Detemir 100 units/mL 10mL Vial SUBQ SCH (22:04)
[2017-10-08] MEDS: cefTRIAXone 1 GM in Sodium Chloride 0.9% 50 ML IV SCH (02:37)
[2017-10-08] MEDS: Acetaminophen 500 MG TAB PO SCH ×2 (06:33→12:17)
[2017-10-08] MEDS: INSULIN ASPART SLIDING SCALE 100 UNITS/ML UNIT SUBQ SCH ×3 (06:34→17:20)
[2017-10-08] MEDS: Albuterol Nebulizer 2.5mg/3mL HHN SCH ×2 (07:48→15:21)
[2017-10-08] MEDS: Ipratropium Neb 0.5 mg/2.5 mL UD HHN SCH ×2 (07:48→15:21)
[2017-10-08] MEDS: Pantoprazole 40 mg EC Tab PO SCH (08:25)
--- NOTE | 2017-10-08 23:31 | Progress Notes ---
DATE: 10/08/2017 SUBJECTIVE: Staff was spoken to. The patient is interviewed. Mood is noted to be irritable. Affect is constricted. The patient's coping skills are noted to be very poor. The patient has been having difficult time to cope with the stress. The patient is stating that she is not going to take any medications. The patient has been isolative and withdrawn. The patient is currently on Seroquel 50 mg at bedtime and the Haldol is going to be given on a p.r.n. basis. ASSESSMENT: The patient is going to be encouraged to participate in groups and verbalize the concerns. Since the patient has been having difficult time, she is not ready to be discharged to a lower level of care yet. JOB# [id number]
--- NOTE | 2017-10-24 12:13 | Discharge Summary ---
DATE OF DISCHARGE: 10/08/2017 HOSPITAL COURSE: The patient is a 72-year-old female, initially admitted to [facility], later transferred to medical floor with acute respiratory distress requiring bronchodilator treatment, oxygen supplementation, and antibiotics. The patient was very noncompliant, was seen by psychiatrist throughout this admission at the medical floor. The patient is being discharged to Skilled Care Facility. PHYSICAL EXAMINATION: VITAL SIGNS: Vital signs are stable. Lungs: Show some rhonchi. Occasional crepitations. No bronchial breathing. HEART: First and second present. ABDOMEN: Soft, bowel sounds present. EXTREMITIES: Show arthritis. NEUROLOGIC: The patient has advanced psychosis. FINAL DIAGNOSES AT THE TIME OF DISCHARGE: Status post respiratory distress, chronic obstructive pulmonary disease, respiratory infection, diabetes mellitus, hypertension, coronary artery disease, peptic ulcer disease, gastritis, arthritis, cardiac arrhythmia. TREATMENT PLAN: The patient discharged to her Skilled Care Facility. We will continue medicines as per NOV. PROGNOSIS: Fair to guarded. The patient is a candidate for this admission. [facility]# [id number]
== END 2017-10-08 19:10 | DRG 192 ==
LOC: MSI 20:43
PROVIDERS: ADMIT Internal Medicine; ATTEND Internal Medicine
DX: J44.0 Chronic obstructive pulmonary disease with (acute) lower respiratory infection (principal); I48.91 Unspecified atrial fibrillation; R06.03 Acute respiratory distress; E11.9 Type 2 diabetes mellitus without complications; I10 Essential (primary) hypertension; K27.9 Peptic ulcer, site unspecified, unspecified as acute or chronic, without hemorrhage or perforation; M19.90 Unspecified osteoarthritis, unspecified site; F41.9 Anxiety disorder, unspecified; J20.9 Acute bronchitis, unspecified; F32.9 Major depressive disorder, single episode, unspecified; F29 Unspecified psychosis not due to a substance or known physiological condition; Z88.1 Allergy status to other antibiotic agents; Z80.0 Family history of malignant neoplasm of digestive organs
CPT/HCPCS: 71045-TC; 82948-90; 87070; 87086-90; 87804-TC; 90779; 94760; J0696; J1630; J1815; J1956; J2060; J2920; J2930; J7613; Z7610

== ENCOUNTER 2018-05-03 15:45 | Inpatient (IN) | payer MEDICARE, OTHER ==
--- NOTE | 2018-05-03 16:49 | ED Physician Chart ---
ED Chief Complaint/HPI - Patient Information Date Seen:: 05/03/18 Time Seen:: 16:33 Chief Complaint:: pt confused and uncooperative History of Present Illness:: this is a 73 yo female who is chronically ill with copd, diabetes and psychosis. this patient has been here in the past for tello psych Allergies:: Allergies Allergy/AdvReac Type Severity Reaction Status Date / Time amoxicillin Allergy Verified 09/19/17 19:23 Penicillins Allergy Verified 09/19/17 19:23 Vitals:: Vital Signs - 8 hr 05/03/18 16:20 Temp 98.4 F HR 91 RR 16 BP 107/71 O2 Sat % 95 Historian:: EMS, Medical Records Review:: Nurse's Note Reviewed, Old Chart Reviewed, Transfer documents Reviewed ED Review of Systems - Review of Systems General/Constitutional: No fever, No chills, No weight loss, No weakness, No diaphoresis, No edema, No loss of appetite, Other (this patient is unable to give a review of systems.) Skin: No skin lesions, No rash, No bruising Head: No headache, No light-headedness Eyes: No loss of vision, No pain, No diplopia ENT: No earache, No nasal drainage, No sore throat, No tinnitus Neck: No neck pain, No swelling, No thyromegaly, No stiffness, No mass noted Cardio Vascular: No chest pain, No palpitations, No PND, No orthopnea, No edema Pulmonary: No SOB, No cough, No sputum, No wheezing GI: No nausea, No vomiting, No diarrhea, No pain, No melena, No hematochezia, No constipation, No hematemesis G/U: No dysuria, No frequency, No hematuria Musculoskeletal: No bone or joint pain, No back pain, No muscle pain Endocrine: No polyuria, No polydipsia Psychiatric: No prior psych history, No depression, No anxiety, No suicidal ideation Hematopoietic: No bruising, No lymphadenopathy Allergic/Immuno: No urticaria, No angioedema Neurological: No syncope, No focal symptoms, No weakness, No paresthesia, No headache, No seizure, No dizziness, No confusion, No vertigo ED Past Medical History - Past Medical History Past Medical History: DM, Asthma/COPD, Dementia Family History: None Social History: Non Smoker, No Alcohol, No Drug Use, Care Facility Surgical History: None Psychiatricy History: Schizophrenia, Dementia Medication: Reviewed Family Medical History - Family Member Mother History Unknown: Yes Ethnicity: Unknown Living Status: Unknown ED Physical Exam - Physical Examination General/Constitutional: Awake, Well-developed, well-nourished, Alert, No distress, GCS 15, Non-toxic appearing, Ambulatory Other Gen/Cons comments:: this patient is uncooperative and refusing all meds and blood draw. obese Head: Atraumatic Eyes: Lids, conjuctiva normal, PERRL, EOMI Skin: Nl inspection, No rash, No skin lesions, No ecchymosis, Well hydrated, No lymphadenopathy ENMT: External ears, nose nl, Nasal exam nl, Lips, teeth, gums nl Neck: Nontender, Full ROM w/o pain, No JVD, No nuchal rigidity, No bruit, No mass, No stridor Respiratory: Nl effort/Exclusion, Clear to Auscultation, No Wheeze/Rhonchi/Rales Cardio Vascular: RRR, No murmur, gallop, rubs, NL S1 S2 GI: No tenderness/rebounding/guarding, No organomegaly, No hernia, Normal BS's, Nondistended, No mass/bruits, No McBurney tenderness : No CVA tenderness Extremities: No tenderness or effusion, Full ROM, normal strength in all extremities, No edema, Normal digits & nails Neuro/Psych: Alert/oriented, DTR's symmetric, Normal sensory exam, Normal motor strength, Judgement/insight normal, Mood normal, Normal gait, No focal deficits Misc: Normal back, No paraspinal tenderness ED Labs/Radiology/EKG Results - Radiology Results Results: chest x-ray ==nad - EKG Interpretations EKG Time:: 16:11 Rate & Rhythm: rate = 82 sinus Carlos: left Intervals: no ectopic ED Assessment - Assessment General Assessment: psychosis ED Septic Shock - . Is Septic Shock (SBP<90, OR Lactate>4 mmol\L) present?: No - <6hrs of presentation: Vital Signs: Vital Signs - 8 hr 05/03/18 16:20 Temp 98.4 F HR 91 RR 16 BP 107/71 O2 Sat % 95 ED Reassessment (Disposition) - Reassessment Reassessment Condition:: Unchanged - Diagnosis Diagnosis:: psychosis - Aftercare/Follow up Instructions Aftercare/Follow-Up Instructions:: Refer to Discharge Instructions - Patient Disposition Discharge/Transfer:: Acute Care w/in this hosp Admitting Medical Physician:: Lawson Mcpherson Admitting Psych Physician:: Carleen Aponte Condition at Disposition:: Unchanged
[2018-05-03] MEDS ORDERED: Fleet Enema 135 mL RC PRN (19:21)
[2018-05-03 19:28] VITALS: BP 137/86
[2018-05-03] MEDS ORDERED: Magnesium Hydroxide (MOM) 30 mL UDC PO PRN (19:48)
[2018-05-03] MEDS: Insulin Detemir 100 units/mL 10mL Vial SUBQ SCH (21:26)
--- NOTE | 2018-05-04 09:03 | Diagnostic Imaging Report ---
CHEST X-RAY: AP view INDICATION: pain COMPARISON: 10/03/2017 FINDINGS: Chronic lung changes are seen with no focal consolidation or effusions. Old right rib fractures are noted. Borderline prominent heart is noted atherosclerosis. Degenerative changes of the spine are noted. 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 Deformity of left humeral head is also noted. IMPRESSION: Chronic lung changes with no focal consolidation identified. Borderline prominent heart with atherosclerosis.
[2018-05-04] MEDS: Pantoprazole 40 mg EC Tab PO SCH (09:09)
--- NOTE | 2018-05-04 14:35 | Psychiatric Evaluation ---
DATE OF SERVICE: 05/04/2018 IDENTIFYING DATA: The patient is a 73-year-old woman, resident of [facility]. Information obtained by directly interviewing the patient as well as reviewing the admission papers and they are reliable. JUSTIFICATION OF HOSPITALIZATION: The patient is admitted here on a voluntary basis in view of her agitation and psychosis. CHIEF COMPLAINT: "I am hungry." HISTORY OF PRESENT ILLNESS: This is the second psychiatric hospitalization was hospitalized under my care in 08/2017. The patient has been diagnosed to have psychotic disorder and the patient has been reported to have been getting easily agitated and upset and has been talking to self. The patient is not making much sense. The patient's sleep is noted to be poor. Appetite is also noted to be poor. The patient during the interview has not been able to make much sense, but is stating that her grandmother and mother in [place] and she needs to get to [place], but she does not know how to get there. She has been having difficult time to cope with the stress. PAST PSYCHIATRIC HISTORY: Please refer to the above. MEDICAL HISTORY: Physical examination is requested to be done by Dr. Stubbs. SUBSTANCE ABUSE HISTORY: None. PHYSICAL OR SEXUAL ABUSE HISTORY: None. LEGAL PROBLEMS: None at this time. MENTAL STATUS EXAMINATION: The patient is a 73-year-old, looking her stated age. Moderately obese, cooperative. Eye contact is fair. Mood is irritable. Affect is constricted. The patient is responding to internal stimuli. The patient has been fed her breakfast this morning, but the patient is still insisting that she needs to get some pizza to deal with her appetite. The patient has been getting easily angry and upset at this time. The patient is not able to contract for safety. The patient ____ getting easily agitated and upset. DIAGNOSTIC IMPRESSION: AXIS I: Psychotic disorder, not otherwise specified. B. Dementia and behavioral changes secondary to dementia. AXIS II: None. AXIS III: As per Dr. Stubbs. IMMEDIATE TREATMENT PLAN: The patient is going to be observed on inpatient unit, provided with supportive psychotherapy. The patient is going to be closely monitored with the low dose of Seroquel, and Ativan is going to be given for her anxiety. The patient is going to be closely monitored and followed up. Estimated length of stay 5-7 days. DISCHARGE CRITERIA: When she no longer a threat to self or others and be able to cope up with the stress. [facility]# [id number]
--- NOTE | 2018-05-04 16:39 | History & Physical ---
ADMIT DATE: 05/03/2018 CHIEF COMPLAINT: Medical management. HISTORY OF PRESENT ILLNESS: This is a 73-year-old female with history of diabetes, hypercholesterolemia, GERD, admitted from nursing facility secondary to agitated Behavioral. The patient is confused without any complaint at this time. Speaks in Frisian. PAST MEDICAL HISTORY: As mentioned in history of present illness. PAST SURGICAL HISTORY: No surgeries in the past. ALLERGIES: NAPROXEN AND PENICILLIN. MEDICATIONS: Vitamin D, Colace, Namenda, labetalol, pantoprazole, Seroquel, Lantus. FAMILY HISTORY: Noncontributory. SOCIAL HISTORY: The patient lives in [facility]. The patient requiring 24-hour total care. REVIEW OF SYSTEMS: This is limited secondary to pain, comatose. We will try to obtain more detailed review of systems at a later date by talking to family members alternate #[phone]. We will try to get information from facility in [place] #[phone]. PHYSICAL EXAMINATION: VITAL SIGNS: Blood pressure 116/71, respiration 18, pulse 81, temperature 98.0. GENERAL: Elderly female, appears stated age. NECK: Supple. No mass. LUNGS: Equal breath sounds, otherwise clear to auscultation. HEART: Regular rate and rhythm with systolic ejection murmur. ABDOMEN: Soft, globular. EXTREMITIES: Positive excoriations. NEUROLOGIC: Limited. The patient is in a Nitza chair, unable to see her walk. LABORATORY DATA: Labs are pending. ASSESSMENT AND PLAN: Chronic obstructive pulmonary disease, diabetes, dementia, Alzheimer's, hypercholesterolemia, obesity, GERD, gait instability. We will place the patient on fall precaution. Continue the patient on insulin sliding scale. Continue on Lantus currently. We will make some adjustment. We will continue to follow the patient closely with Dr. Aponte. Case was discussed with nursing staff. JOB# [id number]
[2018-05-04] MEDS: Insulin Detemir 100 units/mL 10mL Vial SUBQ SCH (20:59)
[2018-05-04] MEDS ORDERED: Haloperidol Lactate 5 mg/mL 1mL Vial IM ONE (22:33)
[2018-05-05] MEDS ORDERED: Haloperidol Lactate 5 mg/mL 1mL Vial ONE (08:55)
[2018-05-05] MEDS ORDERED: Haloperidol Lactate 5 mg/mL 1mL Vial IM ONE (09:02)
[2018-05-05] MEDS: Pantoprazole 40 mg EC Tab PO SCH (10:03)
--- NOTE | 2018-05-05 12:06 | Internal Medicine Prog Note ---
Internal Medicine Subjective - Subjective Service Date: 05/05/18 Patient seen and examined:: with staff Patient is:: awake Per staff patient has:: no adverse event, tolerating meds Internal Medicine Objective - Physical Exam Vitals and I&O: Vital Signs Temp 98.0 F 05/04/18 07:06 Pulse 81 05/04/18 07:06 Resp 19 05/04/18 07:06 BP 116/71 05/04/18 07:06 Pulse Ox 96 05/04/18 07:06 Intake & Output 05/04/18 05/05/18 05/05/18 18:59 06:59 18:59 Intake Total 1350 Balance 1350 Intake: Oral 1350 Other: # Voids 2 # Bowel Movements 0 Active Medications: Current Medications Acetaminophen (Tylenol) 650 mg PO Q4HR PRN PRN Reason: Pain or Fever >101 Stop: 07/02/18 19:47 Bisacodyl (Dulcolax 10 Mg Supp) 10 mg RC DAILY PRN PRN Reason: Constipation Stop: 07/02/18 19:47 Cholecalciferol (Vitamin D3) 1,000 iu PO DAILY [facility] Stop: 07/03/18 08:59 Last Admin: 05/05/18 10:03 Dose: Not Given Docusate Sodium (Colace) 100 mg PO DAILY [facility] Stop: 07/03/18 08:59 Last Admin: 05/05/18 10:03 Dose: Not Given Donepezil HCl (Aricept) 5 mg PO DAILY [facility] Stop: 07/03/18 08:59 Last Admin: 05/05/18 10:03 Dose: 5 mg Insulin Detemir (Levemir Insulin) 10 units SUBQ HS [facility]; Protocol Stop: 07/02/18 20:59 Last Admin: 05/04/18 20:59 Dose: Not Given Labetalol HCl (Trandate) 200 mg PO TID PRN PRN Reason: HYPERTENSION Stop: 07/02/18 19:20 Lorazepam (Ativan) 0.5 mg PO Q4HR PRN; Protocol PRN Reason: Anxiety Stop: 06/02/18 19:51 Last Admin: 05/04/18 21:01 Dose: 0.5 mg Magnesium Hydroxide (Milk Of Magnesia) 30 ml PO HS PRN PRN Reason: Constipation Stop: 07/02/18 19:47 Memantine (Namenda) 10 mg PO BID [facility] Stop: 07/03/18 08:59 Last Admin: 05/05/18 10:03 Dose: Not Given Metformin HCl (Glucophage) 500 mg PO BIDWM [facility] Stop: 07/03/18 07:59 Last Admin: 05/05/18 10:03 Dose: 500 mg Pantoprazole Sodium (Protonix) 40 mg PO DAILY [facility] Stop: 07/03/18 08:59 Last Admin: 05/05/18 10:03 Dose: Not Given Quetiapine Fumarate (Seroquel) 50 mg PO BID [facility]; Protocol Stop: 07/03/18 08:59 Last Admin: 05/05/18 10:02 Dose: 50 mg Senna (Senna) 8.6 mg PO BID [facility] Stop: 07/03/18 08:59 Last Admin: 05/05/18 10:03 Dose: Not Given Sodium Phosphate (Fleet Enema) 135 ml RC Q48HR PRN PRN Reason: Constipation Stop: 07/02/18 19:20 Zolpidem Tartrate (Ambien) 5 mg PO HS PRN PRN Reason: Insomnia Stop: 07/02/18 19:51 Last Admin: 05/04/18 21:02 Dose: 5 mg General: alert HEENT: NC/AT, PERRLA Neck: Supple Lungs: CTAB Cardiovascular: RRR, Normal S1, Normal S2 Abdomen: soft, non-tender, non-distended, positive bowel sound Extremities: excoriation Neurological: alert Internal Medicine Assmt/Plan - Assessment Assessment: copd dm dementia alzheimer's hypercholesteremia obesity gerd gait instability - Plan Plan: monitor s/sx of hypo/hyperglycemia cont with sliding scale and accucheck continue current plan of care
[2018-05-05] MEDS: Insulin Detemir 100 units/mL 10mL Vial SUBQ SCH (21:17)
--- NOTE | 2018-05-05 21:26 | Consultation ---
DATE OF CONSULTATION: 05/05/2018 REFERRING PHYSICIAN: Carleen Aponte M.D. TYPE OF CONSULTATION: Psychology. HISTORY OF PRESENT ILLNESS: The patient is a 73-year-old female. The patient is a resident of [facility]. The following is by review of the medical record and by the patient's self report. The patient is being admitted due to acute agitation and possible psychosis. According to record review, the staff at the patient's facility report that she had been getting easily agitated as well as talking to herself. Upon interview the patient was not able to make much sense. The patient was speaking in [place]ican and [place]raini intermittently and switching between both languages. The patient states that her mother had in [place] and that she needed to get to [place]. The patient presents as confused. She denied any suicidal ideation, plan, or intention. Bahraini speaking staff was present to assist with interpretation when needed. PAST MEDICAL HISTORY: Please see history and physical by Dr. Stubbs. PAST PSYCHIATRIC HISTORY: Record review indicates a history of psychosis. It is unknown whether the patient is under the care of a psychiatrist and/or psychologist. SUBSTANCE ABUSE HISTORY: The patient denied any history. PSYCHOSOCIAL HISTORY: The patient is a resident of [facility]. The patient states that she is a Religion. The patient did not answer questions about occupational or educational history. The patient did not answer questions about family relationships or marital status The patient denied any history of physical or sexual abuse. The patient states she does not have any current legal problems. The patient responds to both Bahraini and [place]. MENTAL STATUS EXAMINATION: The patient appears to be her stated age. The patient's attitude is superficially cooperative. Eye contact is fair. Mood is irritable. Affect is constricted. Speech is loud and pressured. Thought process shows to be confused. The patient is responding to internal stimuli. The patient denied any auditory or visual hallucinations; however, the patient is clearly responding to an inner dialogue. The patient denied any suicidal ideation, plan or intention. The patient's behavior on the unit is easily agitated. Impulse control is poor. Concentration is poor. Sensorium is alert and oriented to self and place only. The patient did not participate in the memory assessment. The patient did not participate in the interpretation of proverbs. Insight is poor. Judgment is impaired. DIAGNOSTIC IMPRESSION: AXIS I: 1. Psychotic disorder, not otherwise specified. 2. Dementia with behavioral disturbance. AXIS II: Deferred. AXIS III: Per Dr. Stubbs. TREATMENT PLAN: The patient has been seen by Dr. Aponte for psychiatric evaluation and for the management of the patient's psychotropic medications. We will provide supportive psychotherapy to include reality orientation, differentiation, and integration. We will provide coping strategies for phase of life issues. According to record review, the patient is being monitored on Seroquel and Ativan. We will provide motivational enhancement for the patient to become compliant and stay compliant with all aspects of her care and treatment plan. We will encourage the patient to be able to demonstrate emotional and self-regulation prior to her discharge. Thank you, Dr. Aponte, for this consult and the opportunity to participate in this patient's care. JOB# [id number] MTDD
--- NOTE | 2018-05-06 02:31 | Progress Notes ---
DATE: 05/05/2018 PSYCHIATRIC PROGRESS NOTE SUBJECTIVE: Staff was spoken to. The patient is interviewed. Mood is noted to be irritable. Affect is constricted. The patient has been very disruptive. The patient's coping skills are noted to be extremely poor. The patient has been getting out of control and has to be given a dose of the Haldol and Benadryl to contain her agitation. The patient is currently on 50 mg b.i.d. of the Seroquel and possibly is going to be increased to 50 mg 3 times a day tomorrow and the patient is going to be followed up with the supportive therapy. The patient has been very disruptive and paranoid and we are finding it very difficult to redirect the patient today. ASSESSMENT: The patient is still psychotic and impulsive. PLAN: To continue the patient with the supportive therapy and followup. JOB# [id number]
--- NOTE | 2018-05-06 14:42 | Internal Medicine Prog Note ---
Internal Medicine Subjective - Subjective Service Date: 05/06/18 Patient seen and examined:: with staff Patient is:: awake Per staff patient has:: no adverse event, tolerating meds Internal Medicine Objective - Physical Exam Vitals and I&O: Vital Signs Temp 97.6 F 05/06/18 04:53 Pulse 87 05/06/18 04:53 Resp 18 05/06/18 04:53 BP 117/77 05/06/18 04:53 Pulse Ox 97 05/06/18 04:53 Intake & Output 05/05/18 05/06/18 05/06/18 18:59 06:59 18:59 Intake Total 600 500 Balance 600 500 Intake: Oral 600 500 Other: # Voids 3 4 # Bowel Movements 1 1 Active Medications: Current Medications Acetaminophen (Tylenol) 650 mg PO Q4HR PRN PRN Reason: Pain or Fever >101 Stop: 07/02/18 19:47 Bisacodyl (Dulcolax 10 Mg Supp) 10 mg RC DAILY PRN PRN Reason: Constipation Stop: 07/02/18 19:47 Cholecalciferol (Vitamin D3) 1,000 iu PO DAILY [facility] Stop: 07/03/18 08:59 Last Admin: 05/05/18 10:03 Dose: Not Given Docusate Sodium (Colace) 100 mg PO DAILY [facility] Stop: 07/03/18 08:59 Last Admin: 05/05/18 10:03 Dose: Not Given Donepezil HCl (Aricept) 5 mg PO DAILY [facility] Stop: 07/03/18 08:59 Last Admin: 05/05/18 10:03 Dose: 5 mg Insulin Detemir (Levemir Insulin) 10 units SUBQ HS [facility]; Protocol Stop: 07/02/18 20:59 Last Admin: 05/05/18 21:17 Dose: Not Given Labetalol HCl (Trandate) 200 mg PO TID PRN PRN Reason: HYPERTENSION Stop: 07/02/18 19:20 Lorazepam (Ativan) 0.5 mg PO Q4HR PRN; Protocol PRN Reason: Anxiety Stop: 06/02/18 19:51 Last Admin: 05/04/18 21:01 Dose: 0.5 mg Magnesium Hydroxide (Milk Of Magnesia) 30 ml PO HS PRN PRN Reason: Constipation Stop: 10/03/18 19:47 Memantine (Namenda) 10 mg PO BID [facility] Stop: 07/03/18 08:59 Last Admin: 05/06/18 08:22 Dose: Not Given Metformin HCl (Glucophage) 500 mg PO BIDWM [facility] Stop: 07/03/18 07:59 Last Admin: 05/06/18 08:22 Dose: Not Given Pantoprazole Sodium (Protonix) 40 mg PO DAILY [facility] Stop: 07/03/18 08:59 Last Admin: 05/05/18 10:03 Dose: Not Given Quetiapine Fumarate (Seroquel) 50 mg PO TID [facility]; Protocol Stop: 07/04/18 20:59 Last Admin: 05/05/18 21:18 Dose: Not Given Senna (Senna) 8.6 mg PO BID [facility] Stop: 07/03/18 08:59 Last Admin: 05/06/18 08:22 Dose: Not Given Sodium Phosphate (Fleet Enema) 135 ml RC Q48HR PRN PRN Reason: Constipation Stop: 07/02/18 19:20 Zolpidem Tartrate (Ambien) 5 mg PO HS PRN PRN Reason: Insomnia Stop: 07/02/18 19:51 Last Admin: 05/04/18 21:02 Dose: 5 mg General: alert HEENT: NC/AT, PERRLA Neck: Supple Lungs: CTAB Cardiovascular: RRR, Normal S1, Normal S2 Abdomen: soft, non-tender, non-distended, positive bowel sound Extremities: excoriation Neurological: alert Internal Medicine Assmt/Plan - Assessment Assessment: copd dm dementia alzheimer's hypercholesteremia obesity gerd gait instability - Plan Plan: monitor s/sx of hypo/hyperglycemia cont with sliding scale and accucheck continue current plan of care
[2018-05-06] MEDS: Pantoprazole 40 mg EC Tab PO SCH (16:44)
[2018-05-06] MEDS: Insulin Detemir 100 units/mL 10mL Vial SUBQ SCH (21:23)
--- NOTE | 2018-05-07 01:01 | Progress Notes ---
DATE: 05/06/2018 PSYCHIATRIC PROGRESS NOTE SUBJECTIVE: Staff was spoke to. The patient is interviewed. Mood is noted to be irritable. Affect is constricted. The patient has been somatically preoccupied. The patient has been asking to take her to the bathroom. Once she goes over there, she is coming back to her bed, and in a few minute, she is asking that she needs to go to the restroom. Coping skills are noted to be very poor. The patient has been getting easily irritable and trying to slap at the staff members. The patient's behavior is a clear danger to others at this time and the patient is gravely disabled. PLAN: To continue the patient with the current medications. I encouraged the patient to verbalize the concerns rather than to act out. The patient is not ready to be discharged to a lower level of care yet. The patient is currently on Seroquel, which is being given at 50 mg 3 times a day, and the patient possibly is going to be increased on the medication tomorrow to 100 mg twice a day, and the patient is going to be followed up with supportive therapy. Please note that the patient is not ready to be discharged to a lower level of care at this time. JOB# [id number]
[2018-05-07] MEDS: Pantoprazole 40 mg EC Tab PO SCH (09:15)
--- NOTE | 2018-05-07 13:38 | Internal Medicine Prog Note ---
Internal Medicine Subjective - Subjective Service Date: 05/07/18 Patient is:: awake Per staff patient has:: no adverse event, tolerating meds Internal Medicine Objective - Physical Exam Vitals and I&O: Vital Signs Temp 97.8 F 05/07/18 04:46 Pulse 85 05/07/18 04:46 Resp 19 05/07/18 04:46 BP 119/78 05/07/18 04:46 Pulse Ox 97 05/07/18 04:46 Intake & Output 05/06/18 05/07/18 05/07/18 18:59 06:59 18:59 Intake Total 500 Balance 500 Intake: Oral 500 Other: # Voids 3 # Bowel Movements 0 Active Medications: Current Medications Acetaminophen (Tylenol) 650 mg PO Q4HR PRN PRN Reason: Pain or Fever >101 Stop: 07/02/18 19:47 Bisacodyl (Dulcolax 10 Mg Supp) 10 mg RC DAILY PRN PRN Reason: Constipation Stop: 07/02/18 19:47 Cholecalciferol (Vitamin D3) 1,000 iu PO DAILY [facility] Stop: 07/03/18 08:59 Last Admin: 05/07/18 09:13 Dose: Not Given Docusate Sodium (Colace) 100 mg PO DAILY [facility] Stop: 07/03/18 08:59 Last Admin: 05/07/18 09:13 Dose: Not Given Donepezil HCl (Aricept) 5 mg PO DAILY [facility] Stop: 07/03/18 08:59 Last Admin: 05/07/18 09:13 Dose: Not Given Insulin Detemir (Levemir Insulin) 10 units SUBQ HS [facility]; Protocol Stop: 07/02/18 20:59 Last Admin: 05/06/18 21:23 Dose: Not Given Labetalol HCl (Trandate) 200 mg PO TID PRN PRN Reason: HYPERTENSION Stop: 07/02/18 19:20 Lorazepam (Ativan) 0.5 mg PO Q4HR PRN; Protocol PRN Reason: Anxiety Stop: 06/02/18 19:51 Last Admin: 05/04/18 21:01 Dose: 0.5 mg Magnesium Hydroxide (Milk Of Magnesia) 30 ml PO HS PRN PRN Reason: Constipation Stop: 07/02/18 19:47 Memantine (Namenda) 10 mg PO BID [facility] Stop: 07/03/18 08:59 Last Admin: 05/07/18 09:13 Dose: Not Given Metformin HCl (Glucophage) 500 mg PO BIDWM [facility] Stop: 07/03/18 07:59 Last Admin: 05/07/18 08:31 Dose: Not Given Pantoprazole Sodium (Protonix) 40 mg PO DAILY [facility] Stop: 07/03/18 08:59 Last Admin: 05/07/18 09:15 Dose: Not Given Quetiapine Fumarate (Seroquel) 50 mg PO TID [facility]; Protocol Stop: 07/04/18 20:59 Last Admin: 05/07/18 09:15 Dose: Not Given Senna (Senna) 8.6 mg PO BID [facility] Stop: 07/03/18 08:59 Last Admin: 05/07/18 09:15 Dose: Not Given Sodium Phosphate (Fleet Enema) 135 ml RC Q48HR PRN PRN Reason: Constipation Stop: 07/02/18 19:20 Zolpidem Tartrate (Ambien) 5 mg PO HS PRN PRN Reason: Insomnia Stop: 07/02/18 19:51 Last Admin: 05/04/18 21:02 Dose: 5 mg General: alert HEENT: NC/AT, PERRLA Neck: Supple Lungs: CTAB Cardiovascular: RRR, Normal S1, Normal S2 Abdomen: soft, non-tender, non-distended, positive bowel sound Extremities: excoriation Neurological: alert Internal Medicine Assmt/Plan - Assessment Assessment: copd dm dementia alzheimer's hypercholesteremia obesity gerd gait instability - Plan Plan: monitor s/sx of hypo/hyperglycemia cont with sliding scale and accucheck continue current plan of care Nutritional Asmnt/Malnutr-PDOC - Dietary Evaluation Malnutrition Findings (Please click <Entered> for more info): Nutritional Asmnt/Malnutrition Start: 05/06/18 14: 57 Text: Status: Complete Freq: Protocol: Document 05/06/18 14:57 LCRUSLANG (Rec: 05/06/18 15:08 AJAY [email or web address]) Nutritional Asmnt/Malnutrition Patient General Information Nutritional Screening Moderate Risk Diagnosis psychosis Pertinent Medical Hx/Surgical Hx DM, hypercholesterolemia, GERD Subjective Information Pt seen sleeping in nidhi-chair at time of visit. Per EMR, PO intake 100%. Current Diet Order/ Nutrition Support [facility] soft chopped Pertinent Medications vit D3, colace, levemir, glucophage, protonix, seroquel , senna Pertinent Labs no labs Nutritional Hx/Data Height 5 ft 5 in Height (Calculated Centimeters) 165.1 Current Weight (lbs) 200 lb Weight (Calculated Kilograms) 90.7 Weight (Calculated Grams) 10448.5 [place] Body Weight 130 Body Mass Index (BMI) 33.3 Weight Status Obese GI Symptoms GI Symptoms None Last BM 8/6 Difficult in: None Skin Integrity/Comment: intact Current %PO Good (75-100%) Estimated Nutritional Goals BEE in Kcals: Adj wt of IBW Calories/Kcals/Kg 25-30 Kcals Calculated 5591-2027 Protein: Adj wt of IBW Protein g/k Protein Calculated 65 Fluid: ml 7954-9013 Nutritional Problem No current Nutrition Prob Problem N/A Malnutrition Alert Is there a minimum of two criteria No selected? Query Text:Check all the applicable criteria. A minimum of two criteria are recommended for diagnosis of either severe or non-severe malnutrition. Malnutrition Related to Morbid Obesity Malnutrition related to morbid obesity No Intervention/Recommendation Comments 1. Continue with current diet as ordered. Recommend to check glucose/A1c/POC level. 2. Monitor PO intake, wt, labs and skin integrity 3. F/U as low risk in 7 days, 05/13, PO check 05/09 Expected Outcomes/Goals Expected Outcomes/Goals 1. PO intake to meet at least 75% of nutritional needs. 2. Wt stability, skin to remain intact, labs to approach WNL.
[2018-05-07] MEDS: Insulin Detemir 100 units/mL 10mL Vial SUBQ SCH (21:21)
--- NOTE | 2018-05-08 02:02 | Progress Notes ---
DATE: 05/07/2018 SUBJECTIVE: Staff was spoken to. The patient is interviewed. Mood is noted to be irritable. Affect is constricted. Coping skills are noted to be still poor. Sleep and appetite also noted to be very poor. The patient has been having difficult time to cope with the stress. No side effects to the medications are noted. The patient has been screaming and yelling and demanding. The patient has no insight into her illness. ASSESSMENT: The patient is still grossly psychotic and impulsive. PLAN: To continue the patient with the supportive therapy, encouraged the patient to verbalize the concerns rather than to act out. The patient is not ready to be discharged to a lower level of care in view of her extreme irritability and anger. [facility]# [id number]
[2018-05-08] MEDS: Pantoprazole 40 mg EC Tab PO SCH (09:13)
--- NOTE | 2018-05-08 13:12 | Internal Medicine Prog Note ---
Internal Medicine Subjective - Subjective Service Date: 05/08/18 Patient is:: awake Per staff patient has:: no adverse event, tolerating meds Internal Medicine Objective - Physical Exam Vitals and I&O: Vital Signs Temp 97.2 F 05/08/18 05:55 Pulse 69 05/08/18 05:55 Resp 18 05/08/18 05:55 BP 124/76 05/08/18 05:55 Pulse Ox 97 05/08/18 05:55 Intake & Output 05/07/18 05/08/18 05/08/18 18:59 06:59 18:59 Intake Total 120 Balance 120 Intake: Oral 120 Other: # Voids 3 Active Medications: Current Medications Acetaminophen (Tylenol) 650 mg PO Q4HR PRN PRN Reason: Pain or Fever >101 Stop: 07/02/18 19:47 Bisacodyl (Dulcolax 10 Mg Supp) 10 mg RC DAILY PRN PRN Reason: Constipation Stop: 07/02/18 19:47 Cholecalciferol (Vitamin D3) 1,000 iu PO DAILY [facility] Stop: 07/03/18 08:59 Last Admin: 05/08/18 09:12 Dose: Not Given Docusate Sodium (Colace) 100 mg PO DAILY [facility] Stop: 07/03/18 08:59 Last Admin: 05/08/18 09:12 Dose: Not Given Donepezil HCl (Aricept) 5 mg PO DAILY [facility] Stop: 07/03/18 08:59 Last Admin: 05/08/18 09:13 Dose: Not Given Insulin Detemir (Levemir Insulin) 10 units SUBQ HS [facility]; Protocol Stop: 07/02/18 20:59 Last Admin: 05/07/18 21:21 Dose: Not Given Labetalol HCl (Trandate) 200 mg PO TID PRN PRN Reason: HYPERTENSION Stop: 07/02/18 19:20 Lorazepam (Ativan) 0.5 mg PO Q4HR PRN; Protocol PRN Reason: Anxiety Stop: 06/02/18 19:51 Last Admin: 05/04/18 21:01 Dose: 0.5 mg Magnesium Hydroxide (Milk Of Magnesia) 30 ml PO HS PRN PRN Reason: Constipation Stop: 07/02/18 19:47 Memantine (Namenda) 10 mg PO BID [facility] Stop: 07/03/18 08:59 Last Admin: 05/08/18 09:13 Dose: Not Given Metformin HCl (Glucophage) 500 mg PO BIDWM [facility] Stop: 07/03/18 07:59 Last Admin: 05/08/18 08:16 Dose: Not Given Pantoprazole Sodium (Protonix) 40 mg PO DAILY [facility] Stop: 07/03/18 08:59 Last Admin: 05/08/18 09:13 Dose: Not Given Quetiapine Fumarate (Seroquel) 50 mg PO TID [facility]; Protocol Stop: 07/04/18 20:59 Last Admin: 05/08/18 09:13 Dose: Not Given Senna (Senna) 8.6 mg PO BID [facility] Stop: 07/03/18 08:59 Last Admin: 05/08/18 09:13 Dose: Not Given Sodium Phosphate (Fleet Enema) 135 ml RC Q48HR PRN PRN Reason: Constipation Stop: 07/02/18 19:20 Zolpidem Tartrate (Ambien) 5 mg PO HS PRN PRN Reason: Insomnia Stop: 07/02/18 19:51 Last Admin: 05/04/18 21:02 Dose: 5 mg General: alert HEENT: NC/AT, PERRLA Neck: Supple Lungs: CTAB Cardiovascular: RRR, Normal S1, Normal S2 Abdomen: soft, non-tender, non-distended, positive bowel sound Extremities: excoriation Neurological: alert Internal Medicine Assmt/Plan - Assessment Assessment: copd dm dementia alzheimer's hypercholesteremia obesity gerd gait instability - Plan Plan: monitor s/sx of hypo/hyperglycemia cont with sliding scale and accucheck continue current plan of care Nutritional Asmnt/Malnutr-PDOC - Dietary Evaluation Malnutrition Findings (Please click <Entered> for more info): Nutritional Asmnt/Malnutrition Start: 05/06/18 14: 57 Text: Status: Complete Freq: Protocol: Document 05/06/18 14:57 LCHENG (Rec: 05/06/18 15:08 MORTEZAG [email or web address]) Nutritional Asmnt/Malnutrition Patient General Information Nutritional Screening Moderate Risk Diagnosis psychosis Pertinent Medical Hx/Surgical Hx DM, hypercholesterolemia, GERD Subjective Information Pt seen sleeping in nidhi-chair at time of visit. Per EMR, PO intake 100%. Current Diet Order/ Nutrition Support [facility] soft chopped Pertinent Medications vit D3, colace, levemir, glucophage, protonix, seroquel , senna Pertinent Labs no labs Nutritional Hx/Data Height 5 ft 5 in Height (Calculated Centimeters) 165.1 Current Weight (lbs) 200 lb Weight (Calculated Kilograms) 90.7 Weight (Calculated Grams) 41936.5 [place] Body Weight 130 Body Mass Index (BMI) 33.3 Weight Status Obese GI Symptoms GI Symptoms None Last BM 8/6 Difficult in: None Skin Integrity/Comment: intact Current %PO Good (75-100%) Estimated Nutritional Goals BEE in Kcals: Adj wt of IBW Calories/Kcals/Kg 25-30 Kcals Calculated 8600-6958 Protein: Adj wt of IBW Protein g/k Protein Calculated 65 Fluid: ml 3164-0423 Nutritional Problem No current Nutrition Prob Problem N/A Malnutrition Alert Is there a minimum of two criteria No selected? Query Text:Check all the applicable criteria. A minimum of two criteria are recommended for diagnosis of either severe or non-severe malnutrition. Malnutrition Related to Morbid Obesity Malnutrition related to morbid obesity No Intervention/Recommendation Comments 1. Continue with current diet as ordered. Recommend to check glucose/A1c/POC level. 2. Monitor PO intake, wt, labs and skin integrity 3. F/U as low risk in 7 days, 05/13, PO check 05/09 Expected Outcomes/Goals Expected Outcomes/Goals 1. PO intake to meet at least 75% of nutritional needs. 2. Wt stability, skin to remain intact, labs to approach WNL.
[2018-05-08] MEDS: Insulin Detemir 100 units/mL 10mL Vial SUBQ SCH (20:43)
--- NOTE | 2018-05-09 00:39 | Progress Notes ---
DATE: 05/08/2018 SUBJECTIVE: Staff was spoken to. The patient is interviewed. Mood is noted to be irritable. Affect is constricted. The patient continues to be paranoid. The patient has been very disruptive. The patient has short-term memory deficits and long-term memory seems to be fair at this time. ASSESSMENT: The patient is still psychotic and impulsive. PLAN: To continue the patient with the supportive therapy and followup. [facility]# [id number]
[2018-05-09] MEDS: Pantoprazole 40 mg EC Tab PO SCH (08:30)
--- NOTE | 2018-05-09 13:13 | Internal Medicine Prog Note ---
Internal Medicine Subjective - Subjective Service Date: 05/09/18 Patient is:: awake Per staff patient has:: no adverse event, tolerating meds Internal Medicine Objective - Physical Exam Vitals and I&O: Vital Signs Temp 97.2 F 05/08/18 05:55 Pulse 69 05/08/18 05:55 Resp 18 05/08/18 05:55 BP 124/76 05/08/18 05:55 Pulse Ox 97 05/08/18 05:55 Active Medications: Current Medications Acetaminophen (Tylenol) 650 mg PO Q4HR PRN PRN Reason: Pain or Fever >101 Stop: 07/02/18 19:47 Bisacodyl (Dulcolax 10 Mg Supp) 10 mg RC DAILY PRN PRN Reason: Constipation Stop: 07/02/18 19:47 Cholecalciferol (Vitamin D3) 1,000 iu PO DAILY [facility] Stop: 07/03/18 08:59 Last Admin: 05/09/18 08:30 Dose: 1,000 iu Docusate Sodium (Colace) 100 mg PO DAILY [facility] Stop: 07/03/18 08:59 Last Admin: 05/09/18 08:29 Dose: 100 mg Donepezil HCl (Aricept) 5 mg PO DAILY [facility] Stop: 07/03/18 08:59 Last Admin: 05/09/18 08:31 Dose: 5 mg Insulin Detemir (Levemir Insulin) 10 units SUBQ HS [facility]; Protocol Stop: 07/02/18 20:59 Last Admin: 05/08/18 20:43 Dose: Not Given Labetalol HCl (Trandate) 200 mg PO TID PRN PRN Reason: HYPERTENSION Stop: 07/02/18 19:20 Lorazepam (Ativan) 0.5 mg PO Q4HR PRN; Protocol PRN Reason: Anxiety Stop: 06/02/18 19:51 Last Admin: 05/04/18 21:01 Dose: 0.5 mg Magnesium Hydroxide (Milk Of Magnesia) 30 ml PO HS PRN PRN Reason: Constipation Stop: 07/02/18 19:47 Memantine (Namenda) 10 mg PO BID [facility] Stop: 07/03/18 08:59 Last Admin: 05/09/18 08:29 Dose: 10 mg Metformin HCl (Glucophage) 500 mg PO BIDWM [facility] Stop: 07/03/18 07:59 Last Admin: 05/09/18 08:29 Dose: 500 mg Pantoprazole Sodium (Protonix) 40 mg PO DAILY [facility] Stop: 07/03/18 08:59 Last Admin: 05/09/18 08:30 Dose: 40 mg Quetiapine Fumarate (Seroquel) 50 mg PO TID [facility]; Protocol Stop: 07/04/18 20:59 Last Admin: 05/09/18 08:30 Dose: 50 mg Senna (Senna) 8.6 mg PO BID [facility] Stop: 07/03/18 08:59 Last Admin: 05/09/18 08:29 Dose: 8.6 mg Sodium Phosphate (Fleet Enema) 135 ml RC Q48HR PRN PRN Reason: Constipation Stop: 07/02/18 19:20 Zolpidem Tartrate (Ambien) 5 mg PO HS PRN PRN Reason: Insomnia Stop: 07/02/18 19:51 Last Admin: 05/04/18 21:02 Dose: 5 mg General: alert HEENT: NC/AT, PERRLA Neck: Supple Lungs: CTAB Cardiovascular: RRR, Normal S1, Normal S2 Abdomen: soft, non-tender, non-distended, positive bowel sound Extremities: excoriation Neurological: alert Internal Medicine Assmt/Plan - Assessment Assessment: copd dm dementia alzheimer's hypercholesteremia obesity gerd gait instability - Plan Plan: monitor s/sx of hypo/hyperglycemia cont with sliding scale and accucheck continue current plan of care Nutritional Asmnt/Malnutr-PDOC - Dietary Evaluation Malnutrition Findings (Please click <Entered> for more info): Nutritional Asmnt/Malnutrition Start: 05/06/18 14: 57 Text: Status: Complete Freq: Protocol: Document 05/06/18 14:57 LCHENG (Rec: 05/06/18 15:08 LCRUSLANG [email or web address]) Nutritional Asmnt/Malnutrition Patient General Information Nutritional Screening Moderate Risk Diagnosis psychosis Pertinent Medical Hx/Surgical Hx DM, hypercholesterolemia, GERD Subjective Information Pt seen sleeping in nidhi-chair at time of visit. Per EMR, PO intake 100%. Current Diet Order/ Nutrition Support [facility] soft chopped Pertinent Medications vit D3, colace, levemir, glucophage, protonix, seroquel , senna Pertinent Labs no labs Nutritional Hx/Data Height 5 ft 5 in Height (Calculated Centimeters) 165.1 Current Weight (lbs) 200 lb Weight (Calculated Kilograms) 90.7 Weight (Calculated Grams) 69529.5 [place] Body Weight 130 Body Mass Index (BMI) 33.3 Weight Status Obese GI Symptoms GI Symptoms None Last BM 8/6 Difficult in: None Skin Integrity/Comment: intact Current %PO Good (75-100%) Estimated Nutritional Goals BEE in Kcals: Adj wt of IBW Calories/Kcals/Kg 25-30 Kcals Calculated 4536-2223 Protein: Adj wt of IBW Protein g/k Protein Calculated 65 Fluid: ml 6208-6729 Nutritional Problem No current Nutrition Prob Problem N/A Malnutrition Alert Is there a minimum of two criteria No selected? Query Text:Check all the applicable criteria. A minimum of two criteria are recommended for diagnosis of either severe or non-severe malnutrition. Malnutrition Related to Morbid Obesity Malnutrition related to morbid obesity No Intervention/Recommendation Comments 1. Continue with current diet as ordered. Recommend to check glucose/A1c/POC level. 2. Monitor PO intake, wt, labs and skin integrity 3. F/U as low risk in 7 days, 05/13, PO check 05/09 Expected Outcomes/Goals Expected Outcomes/Goals 1. PO intake to meet at least 75% of nutritional needs. 2. Wt stability, skin to remain intact, labs to approach WNL.
[2018-05-09] MEDS: Insulin Detemir 100 units/mL 10mL Vial SUBQ SCH (20:41)
--- NOTE | 2018-05-10 00:01 | Progress Notes ---
DATE: 05/09/2018 PSYCHIATRIC PROGRESS NOTE SUBJECTIVE: Staff was spoken to. The patient is interviewed. Mood is noted to be irritable. Affect is constricted. Insight and judgment noted to be still impaired. Impulse control is noted to be poor. Coping skills are also noted to be very poor. The patient has been having difficult time to cope with the stress. Continues to be very paranoid and tends to scream and yell. ASSESSMENT: The patient is still grossly psychotic and impulsive. PLAN: To continue the patient with the supportive therapy and followup. JOB# [id number]
[2018-05-10] MEDS: Pantoprazole 40 mg EC Tab PO SCH ×2 (09:10→09:16)
--- NOTE | 2018-05-10 16:38 | Internal Medicine Prog Note ---
Internal Medicine Subjective - Subjective Service Date: 05/10/18 Patient is:: awake Per staff patient has:: no adverse event, tolerating meds Internal Medicine Objective - Physical Exam Vitals and I&O: Vital Signs Temp 97.2 F 05/08/18 05:55 Pulse 69 05/08/18 05:55 Resp 18 05/08/18 05:55 BP 124/76 05/08/18 05:55 Pulse Ox 97 05/08/18 05:55 Active Medications: Current Medications Acetaminophen (Tylenol) 650 mg PO Q4HR PRN PRN Reason: Pain or Fever >101 Stop: 07/02/18 19:47 Bisacodyl (Dulcolax 10 Mg Supp) 10 mg RC DAILY PRN PRN Reason: Constipation Stop: 07/02/18 19:47 Cholecalciferol (Vitamin D3) 1,000 iu PO DAILY [facility] Stop: 07/03/18 08:59 Last Admin: 05/10/18 09:16 Dose: Not Given Docusate Sodium (Colace) 100 mg PO DAILY [facility] Stop: 07/03/18 08:59 Last Admin: 05/10/18 09:16 Dose: Not Given Donepezil HCl (Aricept) 5 mg PO DAILY [facility] Stop: 07/03/18 08:59 Last Admin: 05/10/18 09:16 Dose: Not Given Insulin Detemir (Levemir Insulin) 10 units SUBQ HS [facility]; Protocol Stop: 07/02/18 20:59 Last Admin: 05/09/18 20:41 Dose: Not Given Labetalol HCl (Trandate) 200 mg PO TID PRN PRN Reason: HYPERTENSION Stop: 07/02/18 19:20 Lorazepam (Ativan) 0.5 mg PO Q4HR PRN; Protocol PRN Reason: Anxiety Stop: 06/02/18 19:51 Last Admin: 05/04/18 21:01 Dose: 0.5 mg Magnesium Hydroxide (Milk Of Magnesia) 30 ml PO HS PRN PRN Reason: Constipation Stop: 07/02/18 19:47 Memantine (Namenda) 10 mg PO BID [facility] Stop: 07/03/18 08:59 Last Admin: 05/10/18 16:23 Dose: Not Given Metformin HCl (Glucophage) 500 mg PO BIDWM [facility] Stop: 07/03/18 07:59 Last Admin: 05/10/18 09:16 Dose: Not Given Pantoprazole Sodium (Protonix) 40 mg PO DAILY [facility] Stop: 07/03/18 08:59 Last Admin: 05/10/18 09:16 Dose: Not Given Quetiapine Fumarate (Seroquel) 50 mg PO TID [facility]; Protocol Stop: 07/04/18 20:59 Last Admin: 05/10/18 13:33 Dose: Not Given Senna (Senna) 8.6 mg PO BID [facility] Stop: 07/03/18 08:59 Last Admin: 05/10/18 16:23 Dose: Not Given Sodium Phosphate (Fleet Enema) 135 ml RC Q48HR PRN PRN Reason: Constipation Stop: 07/02/18 19:20 Zolpidem Tartrate (Ambien) 5 mg PO HS PRN PRN Reason: Insomnia Stop: 07/02/18 19:51 Last Admin: 05/04/18 21:02 Dose: 5 mg General: alert HEENT: NC/AT, PERRLA Neck: Supple Lungs: CTAB Cardiovascular: RRR, Normal S1, Normal S2 Abdomen: soft, non-tender, non-distended, positive bowel sound Extremities: excoriation Neurological: alert Internal Medicine Assmt/Plan - Assessment Assessment: copd dm dementia alzheimer's hypercholesteremia obesity gerd gait instability - Plan Plan: monitor s/sx of hypo/hyperglycemia cont with sliding scale and accucheck continue current plan of care Nutritional Asmnt/Malnutr-PDOC - Dietary Evaluation Malnutrition Findings (Please click <Entered> for more info): Nutritional Asmnt/Malnutrition Start: 05/06/18 14: 57 Text: Status: Complete Freq: Protocol: Document 05/06/18 14:57 LCHENG (Rec: 05/06/18 15:08 LCHENG [email or web address]) Nutritional Asmnt/Malnutrition Patient General Information Nutritional Screening Moderate Risk Diagnosis psychosis Pertinent Medical Hx/Surgical Hx DM, hypercholesterolemia, GERD Subjective Information Pt seen sleeping in nidhi-chair at time of visit. Per EMR, PO intake 100%. Current Diet Order/ Nutrition Support [facility] soft chopped Pertinent Medications vit D3, colace, levemir, glucophage, protonix, seroquel , senna Pertinent Labs no labs Nutritional Hx/Data Height 5 ft 5 in Height (Calculated Centimeters) 165.1 Current Weight (lbs) 200 lb Weight (Calculated Kilograms) 90.7 Weight (Calculated Grams) 37211.5 [place] Body Weight 130 Body Mass Index (BMI) 33.3 Weight Status Obese GI Symptoms GI Symptoms None Last BM 8/6 Difficult in: None Skin Integrity/Comment: intact Current %PO Good (75-100%) Estimated Nutritional Goals BEE in Kcals: Adj wt of IBW Calories/Kcals/Kg 25-30 Kcals Calculated 1395-1378 Protein: Adj wt of IBW Protein g/k Protein Calculated 65 Fluid: ml 3388-8062 Nutritional Problem No current Nutrition Prob Problem N/A Malnutrition Alert Is there a minimum of two criteria No selected? Query Text:Check all the applicable criteria. A minimum of two criteria are recommended for diagnosis of either severe or non-severe malnutrition. Malnutrition Related to Morbid Obesity Malnutrition related to morbid obesity No Intervention/Recommendation Comments 1. Continue with current diet as ordered. Recommend to check glucose/A1c/POC level. 2. Monitor PO intake, wt, labs and skin integrity 3. F/U as low risk in 7 days, 05/13, PO check 05/09 Expected Outcomes/Goals Expected Outcomes/Goals 1. PO intake to meet at least 75% of nutritional needs. 2. Wt stability, skin to remain intact, labs to approach WNL.
[2018-05-10] MEDS: Insulin Detemir 100 units/mL 10mL Vial SUBQ SCH (21:22)
--- NOTE | 2018-05-11 01:39 | Progress Notes ---
DATE: 05/10/2018 PSYCHIATRIC PROGRESS NOTE SUBJECTIVE: Staff was spoken to. The patient is interviewed. Mood is noted to be irritable. Affect is constricted. Insight and judgment at this time are noted to be still impaired. Impulse control is noted to be limited. Coping skills are noted to be limited. The patient has been having difficult time to cope with the stress. The patient has been having poor coping skills. The patient is noncompliant with medications. The patient is stating that she is doing fairly well and should not be on the medications. ASSESSMENT: The patient is still paranoid and impulsive. PLAN: To continue the patient with the supportive therapy and followup. JOB# [id number]
[2018-05-11] MEDS: Pantoprazole 40 mg EC Tab PO SCH (08:56)
[2018-05-11] MEDS ORDERED: Haloperidol Lactate 5 mg/mL 1mL Vial IM STA (12:24)
--- NOTE | 2018-05-11 14:21 | Progress Notes ---
DATE: 05/11/2018 SUBJECTIVE: Staff was spoken to. The patient is interviewed. Mood is noted to be irritable. Affect is constricted. The patient is very reluctant to have any ADLs to be taken care. The patient is very paranoid. Coping skills are noted to be extremely poor. The patient has been reluctant to take medications by mouth. We are trying to convince the patient to comply with the medication. The patient also has been having some discharge from the eyes and is not letting the staff to clean them up. ASSESSMENT: The patient is still grossly psychotic. PLAN: To continue the patient with the supportive therapy, I encouraged the patient to verbalize the concerns rather than to act out. [facility]# [id number]
--- NOTE | 2018-05-11 14:51 | Internal Medicine Prog Note ---
Internal Medicine Subjective - Subjective Service Date: 05/11/18 Patient is:: awake Per staff patient has:: no adverse event, tolerating meds Internal Medicine Objective - Physical Exam Vitals and I&O: Vital Signs Temp 97.2 F 05/08/18 05:55 Pulse 69 05/08/18 05:55 Resp 18 05/08/18 05:55 BP 124/76 05/08/18 05:55 Pulse Ox 97 05/08/18 05:55 Intake & Output 05/10/18 05/11/18 05/11/18 18:59 06:59 18:59 Intake Total 1350 500 Balance 1350 500 Intake: Oral 1350 500 Other: # Voids 3 3 # Bowel Movements 0 0 Active Medications: Current Medications Acetaminophen (Tylenol) 650 mg PO Q4HR PRN PRN Reason: Pain or Fever >101 Stop: 07/02/18 19:47 Bisacodyl (Dulcolax 10 Mg Supp) 10 mg RC DAILY PRN PRN Reason: Constipation Stop: 07/02/18 19:47 Cholecalciferol (Vitamin D3) 1,000 iu PO DAILY [facility] Stop: 07/03/18 08:59 Last Admin: 05/11/18 08:56 Dose: Not Given Docusate Sodium (Colace) 100 mg PO DAILY [facility] Stop: 07/03/18 08:59 Last Admin: 05/11/18 08:56 Dose: Not Given Donepezil HCl (Aricept) 5 mg PO DAILY [facility] Stop: 07/03/18 08:59 Last Admin: 05/11/18 08:56 Dose: Not Given Insulin Detemir (Levemir Insulin) 10 units SUBQ HS [facility]; Protocol Stop: 07/02/18 20:59 Last Admin: 05/10/18 21:22 Dose: Not Given Labetalol HCl (Trandate) 200 mg PO TID PRN PRN Reason: HYPERTENSION Stop: 07/02/18 19:20 Magnesium Hydroxide (Milk Of Magnesia) 30 ml PO HS PRN PRN Reason: Constipation Stop: 07/02/18 19:47 Memantine (Namenda) 10 mg PO BID [facility] Stop: 07/03/18 08:59 Last Admin: 05/11/18 08:56 Dose: Not Given Metformin HCl (Glucophage) 500 mg PO BIDWM [facility] Stop: 07/03/18 07:59 Last Admin: 05/11/18 08:56 Dose: Not Given Pantoprazole Sodium (Protonix) 40 mg PO DAILY [facility] Stop: 07/03/18 08:59 Last Admin: 05/11/18 08:56 Dose: Not Given Quetiapine Fumarate (Seroquel) 50 mg PO TID [facility]; Protocol Stop: 07/04/18 20:59 Last Admin: 05/11/18 13:37 Dose: 50 mg Senna (Senna) 8.6 mg PO BID [facility] Stop: 07/03/18 08:59 Last Admin: 05/11/18 08:56 Dose: Not Given Sodium Phosphate (Fleet Enema) 135 ml RC Q48HR PRN PRN Reason: Constipation Stop: 07/02/18 19:20 Zolpidem Tartrate (Ambien) 5 mg PO HS PRN PRN Reason: Insomnia Stop: 07/02/18 19:51 Last Admin: 05/04/18 21:02 Dose: 5 mg General: alert HEENT: NC/AT, PERRLA Neck: Supple Lungs: CTAB Cardiovascular: RRR, Normal S1, Normal S2 Abdomen: soft, non-tender, non-distended, positive bowel sound Extremities: excoriation Neurological: alert Internal Medicine Assmt/Plan - Assessment Assessment: copd dm dementia alzheimer's hypercholesteremia obesity gerd gait instability - Plan Plan: monitor s/sx of hypo/hyperglycemia cont with sliding scale and accucheck continue current plan of care Nutritional Asmnt/Malnutr-PDOC - Dietary Evaluation Malnutrition Findings (Please click <Entered> for more info): Nutritional Asmnt/Malnutrition Start: 05/06/18 14: 57 Text: Status: Complete Freq: Protocol: Document 05/06/18 14:57 LCHENG (Rec: 05/06/18 15:08 LCRUSLANG [email or web address]) Nutritional Asmnt/Malnutrition Patient General Information Nutritional Screening Moderate Risk Diagnosis psychosis Pertinent Medical Hx/Surgical Hx DM, hypercholesterolemia, GERD Subjective Information Pt seen sleeping in nidhi-chair at time of visit. Per EMR, PO intake 100%. Current Diet [facility]/ [facility] Pertinent Medications vit D3, colace, levemir, glucophage, protonix, seroquel , senna Pertinent Labs no labs Nutritional Hx/Data Height 5 ft 5 in Height (Calculated Centimeters) 165.1 Current Weight (lbs) 200 lb Weight (Calculated Kilograms) 90.7 Weight (Calculated Grams) 40674.5 [place] Body Weight 130 Body Mass Index (BMI) 33.3 Weight Status Obese GI Symptoms GI Symptoms None Last BM 8/6 Difficult in: None Skin Integrity/Comment: intact Current %PO Good (75-100%) Estimated Nutritional Goals BEE in Kcals: Adj wt of IBW Calories/Kcals/Kg 25-30 Kcals Calculated 7486-3703 Protein: Adj wt of IBW Protein g/k Protein Calculated 65 Fluid: ml 6009-5070 Nutritional Problem No current Nutrition Prob Problem N/A Malnutrition Alert Is there a minimum of two criteria No selected? Query Text:Check all the applicable criteria. A minimum of two criteria are recommended for diagnosis of either severe or non-severe malnutrition. Malnutrition Related to Morbid Obesity Malnutrition related to morbid obesity No Intervention/Recommendation Comments 1. Continue with current diet as ordered. Recommend to check glucose/A1c/POC level. 2. Monitor PO intake, wt, labs and skin integrity 3. F/U as low risk in 7 days, 05/13, PO check 05/09 Expected Outcomes/Goals Expected Outcomes/Goals 1. PO intake to meet at least 75% of nutritional needs. 2. Wt stability, skin to remain intact, labs to approach WNL.
[2018-05-11] MEDS: Insulin Detemir 100 units/mL 10mL Vial SUBQ SCH (20:49)
[2018-05-12] MEDS: Pantoprazole 40 mg EC Tab PO SCH (09:10)
[2018-05-12] MEDS ORDERED: Haloperidol Lactate 5 mg/mL 1mL Vial IM ONE (10:26)
--- NOTE | 2018-05-12 13:32 | Internal Medicine Prog Note ---
Internal Medicine Subjective - Subjective Service Date: 05/12/18 Patient is:: awake Per staff patient has:: no adverse event, tolerating meds Internal Medicine Objective - Physical Exam Vitals and I&O: Vital Signs Temp 0 F 05/12/18 05:38 Pulse 85 05/11/18 16:20 Resp 18 05/11/18 16:20 BP 133/78 05/11/18 16:20 Pulse Ox 95 05/11/18 16:20 Intake & Output 05/11/18 05/12/18 05/12/18 18:59 06:59 18:59 Intake Total 120 Balance 120 Intake: Oral 120 Other: # Voids 3 # Bowel Movements 0 Active Medications: Current Medications Acetaminophen (Tylenol) 650 mg PO Q4HR PRN PRN Reason: Pain or Fever >101 Stop: 07/02/18 19:47 Bisacodyl (Dulcolax 10 Mg Supp) 10 mg RC DAILY PRN PRN Reason: Constipation Stop: 07/02/18 19:47 Cholecalciferol (Vitamin D3) 1,000 iu PO DAILY [facility] Stop: 07/03/18 08:59 Last Admin: 05/12/18 09:09 Dose: Not Given Docusate Sodium (Colace) 100 mg PO DAILY [facility] Stop: 07/03/18 08:59 Last Admin: 05/12/18 09:09 Dose: Not Given Donepezil HCl (Aricept) 5 mg PO DAILY [facility] Stop: 07/03/18 08:59 Last Admin: 05/12/18 09:10 Dose: Not Given Haloperidol Decanoate (Haldol Dec) 50 mg IM QMONTH [facility]; Protocol Stop: 07/12/18 10:59 Insulin Detemir (Levemir Insulin) 10 units SUBQ HS [facility]; Protocol Stop: 07/02/18 20:59 Last Admin: 05/11/18 20:49 Dose: Not Given Labetalol HCl (Trandate) 200 mg PO TID PRN PRN Reason: HYPERTENSION Stop: 07/02/18 19:20 Magnesium Hydroxide (Milk Of Magnesia) 30 ml PO HS PRN PRN Reason: Constipation Stop: 07/02/18 19:47 Memantine (Namenda) 10 mg PO BID [facility] Stop: 07/03/18 08:59 Last Admin: 05/12/18 09:10 Dose: Not Given Metformin HCl (Glucophage) 500 mg PO BIDWM [facility] Stop: 07/03/18 07:59 Last Admin: 05/12/18 09:09 Dose: Not Given Pantoprazole Sodium (Protonix) 40 mg PO DAILY [facility] Stop: 07/03/18 08:59 Last Admin: 05/12/18 09:10 Dose: Not Given Quetiapine Fumarate (Seroquel) 50 mg PO TID [facility]; Protocol Stop: 07/04/18 20:59 Last Admin: 05/12/18 13:15 Dose: Not Given Senna (Senna) 8.6 mg PO BID [facility] Stop: 07/03/18 08:59 Last Admin: 05/12/18 09:10 Dose: Not Given Sodium Phosphate (Fleet Enema) 135 ml RC Q48HR PRN PRN Reason: Constipation Stop: 07/02/18 19:20 Zolpidem Tartrate (Ambien) 5 mg PO HS PRN PRN Reason: Insomnia Stop: 07/02/18 19:51 Last Admin: 05/11/18 20:50 Dose: 5 mg General: alert HEENT: NC/AT, PERRLA Neck: Supple Lungs: CTAB Cardiovascular: RRR, Normal S1, Normal S2 Abdomen: soft, non-tender, non-distended, positive bowel sound Extremities: excoriation Neurological: alert Internal Medicine Assmt/Plan - Assessment Assessment: copd dm dementia alzheimer's hypercholesteremia obesity gerd gait instability - Plan Plan: monitor s/sx of hypo/hyperglycemia cont with sliding scale and accucheck continue current plan of care Nutritional Asmnt/Malnutr-PDOC - Dietary Evaluation Malnutrition Findings (Please click <Entered> for more info): Nutritional Asmnt/Malnutrition Start: 05/06/18 14: 57 Text: Status: Complete Freq: Protocol: Document 05/06/18 14:57 AJAY (Rec: 05/06/18 15:08 AJAY [email or web address]) Nutritional Asmnt/Malnutrition Patient General Information Nutritional Screening Moderate Risk Diagnosis psychosis Pertinent Medical Hx/Surgical Hx DM, hypercholesterolemia, GERD Subjective Information Pt seen sleeping in nidhi-chair at time of visit. Per EMR, PO intake 100%. [facility] Pertinent Medications vit D3, colace, levemir, glucophage, protonix, seroquel , senna Pertinent Labs no labs Nutritional Hx/Data Height 5 ft 5 in Height (Calculated Centimeters) 165.1 Current Weight (lbs) 200 lb Weight (Calculated Kilograms) 90.7 Weight (Calculated Grams) 36384.5 [place] Body Weight 130 Body Mass Index (BMI) 33.3 Weight Status Obese GI Symptoms GI Symptoms None Last BM 8/6 Difficult in: None Skin Integrity/Comment: intact Current %PO Good (75-100%) Estimated Nutritional Goals BEE in Kcals: Adj wt of IBW Calories/Kcals/Kg 25-30 Kcals Calculated 3161-3739 Protein: Adj wt of IBW Protein g/k Protein Calculated 65 Fluid: ml 9499-0055 Nutritional Problem No current Nutrition Prob Problem N/A Malnutrition Alert Is there a minimum of two criteria No selected? Query Text:Check all the applicable criteria. A minimum of two criteria are recommended for diagnosis of either severe or non-severe malnutrition. Malnutrition Related to Morbid Obesity Malnutrition related to morbid obesity No Intervention/Recommendation Comments 1. Continue with current diet as ordered. Recommend to check glucose/A1c/POC level. 2. Monitor PO intake, wt, labs and skin integrity 3. F/U as low risk in 7 days, 05/13, PO check 05/09 Expected Outcomes/Goals Expected Outcomes/Goals 1. PO intake to meet at least 75% of nutritional needs. 2. Wt stability, skin to remain intact, labs to approach WNL.
[2018-05-12] MEDS: Insulin Detemir 100 units/mL 10mL Vial SUBQ SCH (20:56)
--- NOTE | 2018-05-12 21:01 | Progress Notes ---
DATE: 05/12/2018 PSYCHIATRIC PROGRESS NOTE SUBJECTIVE: Staff was spoken to. The patient is interviewed. Mood is noted to be irritable. Affect is constricted. The patient has been trying to push the wheelchair, harm to the staff member. The patient has no insight into her illness. Coping skills are noted to be extremely poor. Sleep and appetite also noted to very poor. The patient has consistently been refusing to take the medication and hence it is decided to give the patient the Haldol Decanoate and follow the patient up. JOB# [id number]
[2018-05-13] MEDS: Pantoprazole 40 mg EC Tab PO SCH (11:52)
--- NOTE | 2018-05-13 14:26 | Internal Medicine Prog Note ---
Internal Medicine Subjective - Subjective Service Date: 05/13/18 Patient is:: awake Per staff patient has:: no adverse event, tolerating meds Internal Medicine Objective - Results Recent Labs: Laboratory Last Values POC Glucose 202 MG/DL (70 - 105) H 05/12/18 19:34 - Physical Exam Vitals and I&O: Vital Signs Temp 0 F 05/13/18 06:04 Pulse 78 05/12/18 14:23 Resp 23 05/12/18 14:23 BP 114/70 05/12/18 14:23 Pulse Ox 96 05/12/18 14:23 Intake & Output 05/12/18 05/13/18 05/13/18 18:59 06:59 18:59 Intake Total 2600 120 Balance 2600 120 Intake: Oral 2600 120 Other: # Voids 3 3 # Bowel Movements 1 0 Active Medications: Current Medications Acetaminophen (Tylenol) 650 mg PO Q4HR PRN PRN Reason: Pain or Fever >101 Stop: 07/02/18 19:47 Bisacodyl (Dulcolax 10 Mg Supp) 10 mg RC DAILY PRN PRN Reason: Constipation Stop: 07/02/18 19:47 Cholecalciferol (Vitamin D3) 1,000 iu PO DAILY [facility] Stop: 07/03/18 08:59 Last Admin: 05/13/18 11:52 Dose: Not Given Docusate Sodium (Colace) 100 mg PO DAILY [facility] Stop: 07/03/18 08:59 Last Admin: 05/13/18 11:52 Dose: Not Given Donepezil HCl (Aricept) 5 mg PO DAILY [facility] Stop: 07/03/18 08:59 Last Admin: 05/13/18 11:52 Dose: Not Given Haloperidol Decanoate (Haldol Dec) 50 mg IM QMONTH [facility]; Protocol Stop: 07/12/18 10:59 Last Admin: 05/13/18 11:51 Dose: 50 mg Insulin Detemir (Levemir Insulin) 10 units SUBQ HS [facility]; Protocol Stop: 07/02/18 20:59 Last Admin: 05/12/18 20:56 Dose: 10 unit Labetalol HCl (Trandate) 200 mg PO TID PRN PRN Reason: HYPERTENSION Stop: 07/02/18 19:20 Magnesium Hydroxide (Milk Of Magnesia) 30 ml PO HS PRN PRN Reason: Constipation Stop: 07/02/18 19:47 Memantine (Namenda) 10 mg PO BID [facility] Stop: 07/03/18 08:59 Last Admin: 05/13/18 11:52 Dose: Not Given Metformin HCl (Glucophage) 500 mg PO BIDWM [facility] Stop: 07/03/18 07:59 Last Admin: 05/13/18 11:52 Dose: Not Given Pantoprazole Sodium (Protonix) 40 mg PO DAILY [facility] Stop: 07/03/18 08:59 Last Admin: 05/13/18 11:52 Dose: Not Given Quetiapine Fumarate (Seroquel) 50 mg PO TID [facility]; Protocol Stop: 07/04/18 20:59 Last Admin: 05/13/18 11:52 Dose: Not Given Senna (Senna) 8.6 mg PO BID [facility] Stop: 07/03/18 08:59 Last Admin: 05/13/18 11:53 Dose: Not Given Sodium Phosphate (Fleet Enema) 135 ml RC Q48HR PRN PRN Reason: Constipation Stop: 07/02/18 19:20 Zolpidem Tartrate (Ambien) 5 mg PO HS PRN PRN Reason: Insomnia Stop: 07/02/18 19:51 Last Admin: 05/11/18 20:50 Dose: 5 mg General: alert HEENT: NC/AT, PERRLA Neck: Supple Lungs: CTAB Cardiovascular: RRR, Normal S1, Normal S2 Abdomen: soft, non-tender, non-distended, positive bowel sound Extremities: excoriation Neurological: alert Internal Medicine Assmt/Plan - Assessment Assessment: copd dm dementia alzheimer's hypercholesteremia obesity gerd gait instability - Plan Plan: monitor s/sx of hypo/hyperglycemia cont with sliding scale and accucheck continue current plan of care Nutritional Asmnt/Malnutr-PDOC - Dietary Evaluation Malnutrition Findings (Please click <Entered> for more info): Nutritional Asmnt/Malnutrition Start: 05/06/18 14: 57 Text: Status: Complete Freq: Protocol: Document 05/06/18 14:57 AJAY (Rec: 05/06/18 15:08 AJAY [email or web address]) Nutritional Asmnt/Malnutrition Patient General Information Nutritional Screening Moderate Risk Diagnosis psychosis Pertinent Medical Hx/Surgical Hx DM, hypercholesterolemia, GERD Subjective Information Pt seen sleeping in nidhi-chair at time of visit. Per EMR, PO intake 100%. Current Diet Order/ Nutrition Support [facility] soft chopped Pertinent Medications vit D3, colace, levemir, glucophage, protonix, seroquel , senna Pertinent Labs no labs Nutritional Hx/Data Height 5 ft 5 in Height (Calculated Centimeters) 165.1 Current Weight (lbs) 200 lb Weight (Calculated Kilograms) 90.7 Weight (Calculated Grams) 92003.5 [place] Body Weight 130 Body Mass Index (BMI) 33.3 Weight Status Obese GI Symptoms GI Symptoms None Last BM 8/ Difficult in: None Skin Integrity/Comment: intact Current %PO Good (75-100%) Estimated Nutritional Goals BEE in Kcals: Adj wt of IBW Calories/Kcals/Kg 25-30 Kcals Calculated 7159-5919 Protein: Adj wt of IBW Protein g/k Protein Calculated 65 Fluid: ml 0757-6925 Nutritional Problem No current Nutrition Prob Problem N/A Malnutrition Alert Is there a minimum of two criteria No selected? Query Text:Check all the applicable criteria. A minimum of two criteria are recommended for diagnosis of either severe or non-severe malnutrition. Malnutrition Related to Morbid Obesity Malnutrition related to morbid obesity No Intervention/Recommendation Comments 1. Continue with current diet as ordered. Recommend to check glucose/A1c/POC level. 2. Monitor PO intake, wt, labs and skin integrity 3. F/U as low risk in 7 days, 05/13, PO check 05/09 Expected Outcomes/Goals Expected Outcomes/Goals 1. PO intake to meet at least 75% of nutritional needs. 2. Wt stability, skin to remain intact, labs to approach WNL.
--- NOTE | 2018-05-13 21:09 | Progress Notes ---
DATE: 05/13/2018 SUBJECTIVE: Staff was spoken to. The patient is interviewed. Mood is noted to be irritable. Affect is constricted. Insight and judgment at this time are noted to be still impaired. Impulse control seems to be limited. Coping skills are noted to be limited. The patient has been trying to trip the staff when they were walking by. The patient has no insight. In view of her impulsivity and noncompliance to medication, the patient is going to be given the Haldol Decanoate today and is going to be observed. ASSESSMENT: The patient is still psychotic. PLAN: To continue the patient with the supportive therapy and followup. JOB# [id number]
[2018-05-13] MEDS: Insulin Detemir 100 units/mL 10mL Vial SUBQ SCH (21:40)
[2018-05-14] MEDS: Pantoprazole 40 mg EC Tab PO SCH ×2 (08:49→08:56)
--- NOTE | 2018-05-14 14:27 | Internal Medicine Prog Note ---
Internal Medicine Subjective - Subjective Service Date: 05/14/18 Patient is:: awake Per staff patient has:: no adverse event, tolerating meds Internal Medicine Objective - Results Recent Labs: Laboratory Last Values POC Glucose 202 MG/DL (70 - 105) H 05/12/18 19:34 - Physical Exam Vitals and I&O: Vital Signs Temp 97.8 F 05/14/18 14:09 Pulse 77 05/14/18 14:09 Resp 24 05/14/18 14:09 BP 120/66 05/14/18 14:09 Pulse Ox 92 05/14/18 14:09 Intake & Output 05/13/18 05/14/18 05/14/18 18:59 06:59 18:59 Intake Total 500 Balance 500 Intake: Oral 500 Other: # Voids 4 # Bowel Movements 0 Active Medications: Current Medications Acetaminophen (Tylenol) 650 mg PO Q4HR PRN PRN Reason: Pain or Fever >101 Stop: 07/02/18 19:47 Bisacodyl (Dulcolax 10 Mg Supp) 10 mg RC DAILY PRN PRN Reason: Constipation Stop: 07/02/18 19:47 Cholecalciferol (Vitamin D3) 1,000 iu PO DAILY [facility] Stop: 07/03/18 08:59 Last Admin: 05/14/18 08:56 Dose: Not Given Docusate Sodium (Colace) 100 mg PO DAILY [facility] Stop: 07/03/18 08:59 Last Admin: 05/14/18 08:56 Dose: Not Given Donepezil HCl (Aricept) 5 mg PO DAILY [facility] Stop: 07/03/18 08:59 Last Admin: 05/14/18 08:56 Dose: Not Given Haloperidol Decanoate (Haldol Dec) 50 mg IM QMONTH [facility]; Protocol Stop: 07/12/18 10:59 Last Admin: 05/13/18 11:51 Dose: 50 mg Insulin Detemir (Levemir Insulin) 10 units SUBQ HS [facility]; Protocol Stop: 07/02/18 20:59 Last Admin: 05/13/18 21:40 Dose: Not Given Labetalol HCl (Trandate) 200 mg PO TID PRN PRN Reason: HYPERTENSION Stop: 07/02/18 19:20 Magnesium Hydroxide (Milk Of Magnesia) 30 ml PO HS PRN PRN Reason: Constipation Stop: 07/02/18 19:47 Memantine (Namenda) 10 mg PO BID [facility] Stop: 07/03/18 08:59 Last Admin: 05/14/18 08:56 Dose: Not Given Metformin HCl (Glucophage) 500 mg PO BIDWM [facility] Stop: 07/03/18 07:59 Last Admin: 05/14/18 08:56 Dose: Not Given Pantoprazole Sodium (Protonix) 40 mg PO DAILY [facility] Stop: 07/03/18 08:59 Last Admin: 05/14/18 08:56 Dose: Not Given Quetiapine Fumarate (Seroquel) 50 mg PO TID [facility]; Protocol Stop: 07/04/18 20:59 Last Admin: 05/14/18 14:03 Dose: Not Given Senna (Senna) 8.6 mg PO BID [facility] Stop: 07/03/18 08:59 Last Admin: 05/14/18 08:56 Dose: Not Given Sodium Phosphate (Fleet Enema) 135 ml RC Q48HR PRN PRN Reason: Constipation Stop: 07/02/18 19:20 Zolpidem Tartrate (Ambien) 5 mg PO HS PRN PRN Reason: Insomnia Stop: 07/02/18 19:51 Last Admin: 05/11/18 20:50 Dose: 5 mg General: alert HEENT: NC/AT, PERRLA Neck: Supple Lungs: CTAB Cardiovascular: RRR, Normal S1, Normal S2 Abdomen: soft, non-tender, non-distended, positive bowel sound Extremities: excoriation Neurological: alert Internal Medicine Assmt/Plan - Assessment Assessment: copd dm dementia alzheimer's hypercholesteremia obesity gerd gait instability - Plan Plan: monitor s/sx of hypo/hyperglycemia cont with sliding scale and accucheck continue current plan of care Nutritional Asmnt/Malnutr-PDOC - Dietary Evaluation Malnutrition Findings (Please click <Entered> for more info): Nutritional Asmnt/Malnutrition Start: 05/06/18 14: 57 Text: Status: Complete Freq: Protocol: Document 05/06/18 14:57 LCHENG (Rec: 05/06/18 15:08 LCRUSLANG [email or web address]) Nutritional Asmnt/Malnutrition Patient General Information Nutritional Screening Moderate Risk Diagnosis psychosis Pertinent Medical Hx/Surgical Hx DM, hypercholesterolemia, GERD Subjective Information Pt seen sleeping in nidhi-chair at time of visit. Per EMR, PO intake 100%. Current Diet Order/ Nutrition Support [facility] soft chopped Pertinent Medications vit D3, colace, levemir, glucophage, protonix, seroquel , senna Pertinent Labs no labs Nutritional Hx/Data Height 5 ft 5 in Height (Calculated Centimeters) 165.1 Current Weight (lbs) 200 lb Weight (Calculated Kilograms) 90.7 Weight (Calculated Grams) 67359.5 [place] Body Weight 130 Body Mass Index (BMI) 33.3 Weight Status Obese GI Symptoms GI Symptoms None Last BM 8/6 Difficult in: None Skin Integrity/Comment: intact Current %PO Good (75-100%) Estimated Nutritional Goals BEE in Kcals: Adj wt of IBW Calories/Kcals/Kg 25-30 Kcals Calculated 7820-4788 Protein: Adj wt of IBW Protein g/k Protein Calculated 65 Fluid: ml 2696-9181 Nutritional Problem No current Nutrition Prob Problem N/A Malnutrition Alert Is there a minimum of two criteria No selected? Query Text:Check all the applicable criteria. A minimum of two criteria are recommended for diagnosis of either severe or non-severe malnutrition. Malnutrition Related to Morbid Obesity Malnutrition related to morbid obesity No Intervention/Recommendation Comments 1. Continue with current diet as ordered. Recommend to check glucose/A1c/POC level. 2. Monitor PO intake, wt, labs and skin integrity 3. F/U as low risk in 7 days, 05/13, PO check 05/09 Expected Outcomes/Goals Expected Outcomes/Goals 1. PO intake to meet at least 75% of nutritional needs. 2. Wt stability, skin to remain intact, labs to approach WNL.
--- NOTE | 2018-05-14 15:27 | Progress Notes ---
DATE: 05/14/2018 SUBJECTIVE: Staff was spoken to. The patient is interviewed. Mood is noted to be irritable. Affect is constricted. Insight and judgment at this time are noted to be still impaired. Impulse control seems to be poor. Coping skills are also noted to be very poor. The patient has been having difficult time to cope with the stress. The patient, however, has been not striking out not screaming today. ASSESSMENT patient's psychosis, resolving. The patient has been given the dose of the Haldol Decanoate yesterday. PLAN: To discharge the patient today for placement for followup on outpatient basis. JOB# [id number]
--- NOTE | 2018-05-17 15:14 | Discharge Summary ---
DATE OF DISCHARGE: 05/14/2018 IDENTIFYING DATA: The patient is a 73-year-old woman, resident of [facility]. JUSTIFICATION OF HOSPITALIZATION: The patient is admitted on a voluntary basis in view of her acute agitation and psychosis. CHIEF COMPLAINT: "I am hungry, they not feeding me right." DIAGNOSES AT THE TIME OF ADMISSION: AXIS I: Psychotic disorder, not otherwise specified. AXIS IB. Dementia and behavioral change, secondary trait. AXIS II: None. AXIS III: As per Dr. Stubbs. HISTORY OF PRESENT ILLNESS: Please refer the 05/04/2018 dictation done by me. Physical examination was done by Dr. Stubbs and is noted to be significant for the patient being morbidly obese and the patient has high blood pressure, GERD, hypercholesterolemia, and diabetes. HOSPITAL COURSE AND RESPONSE TO TREATMENT: The patient has been observed. The patient has been very mischievous and has been trying to kick the staff members and insight and judgment is noted to be still impaired. Impulse control is noted to be poor. The patient has been very irritable and angry and has been reluctant to comply with the medication. The patient has been closely monitored and blood work has been reviewed by Dr. Stubbs. The patient has to be placed on the Haldol on a p.r.n. basis because the patient has been refusing and the patient has been given 50 mg of the Haldol Decanoate prior to her being leaving. The patient also has been placed on 50 mg of the Seroquel twice a day and with these medications, the patient was observed and the patient started to do fairly well and the aggression became manageable and the patient was discharged on 05/14/2018 with recommendation that she is going to be seeking treatment. MENTAL STATUS EXAMINATION: At the time of discharge, the patient's mood is noted to be anxious. Affect is appropriate. The patient is not suicidal or homicidal. Paranoia is noted, but the patient is not presenting with any threats to harm self or others. DIAGNOSES AT THE TIME OF DISCHARGE: AXIS I: Psychotic disorder, not otherwise specified. AXIS IB. Rule out schizophrenia, chronic paranoid type with acute exacerbation. AXIS II: None. AXIS III: Diabetes mellitus, morbid obesity, hyperglycemia, GERD, and arthritis. AFTERCARE PLAN: The patient is discharged to [facility] to be followed up on an outpatient basis. PROGNOSIS: At the time of discharge noted to be guarded. JOB# [id number]
== END 2018-05-14 19:15 | DRG 885 ==
LOC: ER 15:45 → GERO2 16:43
PROVIDERS: ADMIT Psychiatry & Neurology Psychiatry; ATTEND Psychiatry & Neurology Psychiatry
DX: F29 Unspecified psychosis not due to a substance or known physiological condition (principal); F02.81 Dementia in other diseases classified elsewhere, unspecified severity, with behavioral disturbance; J44.9 Chronic obstructive pulmonary disease, unspecified; E11.9 Type 2 diabetes mellitus without complications; E78.00 Pure hypercholesterolemia, unspecified; K21.9 Gastro-esophageal reflux disease without esophagitis; G30.9 Alzheimer's disease, unspecified; R26.9 Unspecified abnormalities of gait and mobility; E66.9 Obesity, unspecified; Z68.33 Body mass index [BMI] 33.0-33.9, adult; Z88.0 Allergy status to penicillin; Z88.1 Allergy status to other antibiotic agents
CPT/HCPCS: 71045-TC; 82948-90; 93005; J1200; J1630; J1631; J1815; J2060; Z7610